=== PATIENT | female | born 1935 | race Caucasian/White ===

== ENCOUNTER 2016-06-11 09:46 | Inpatient (IN) | payer OTHER ==
[~2016-06-11] VITALS: Ht 162.6 cm; Wt 74.0 kg
[2016-06-11] MEDS ORDERED: ALBUTEROL 0.5% (NEB) 2.5 MG/0.5 ML AMP INH STA ×2 (10:20→13:49)
[2016-06-11] MEDS ORDERED: IPRATROPIUM (NEB) 0.5 MG/2.5 ML AMP INH STA (10:20)
[2016-06-11] MEDS ORDERED: IPRATROPIUM (NEB) 0.5 MG/2.5 ML AMP ONE (10:21)
[2016-06-11] MEDS ORDERED: ALBUTEROL 0.5% (NEB) 2.5 MG/0.5 ML AMP ONE (10:21)
--- NOTE | 2016-06-11 10:38 | RADRPT ---
PROCEDURE: XR Chest. CLINICAL INDICATION: Asthma exacerbation. TECHNIQUE: Single frontal view of the chest was obtained COMPARISON: No. FINDINGS: There is thickening of the minor fissure. There is elevation of the right diaphragm. The left vent ricle is upper limits of normal for size. There are increased interstitial markings in the bases of the lungs. There are plate-like densities in the medial aspect of the left lower lobe. The pulmon john vasculature is normal. Vascular calcifications are present the aortic arch. Monitoring electro aniket are direct across the chest. Degenerative osteophytes are present the thoracic spine. IMPRESSION: 1. There are increased interstitial markings in the bases of the lungs. These may be acute or chron ic in nature. Comparison with prior chest x-rays if available or follow-up imaging with AP and late ral chest may be helpful in evaluation. 2. Thickening of the minor fissure could be the result of a trace pleural effusion or pleural scarr ing. 4. Atherosclerosis and aortic arch. 5. Spondylosis of the thoracic spine. 6. Plate-like densities in the medial aspect of the left lower lobe consistent with parenchymal sca rring or atelectasis. RPTAT:AAJJ Physician Yoandy Date Time Electronically viewed and signed by Physician Yoandy on 06/11/2016 10:37 JM/
[2016-06-11 10:39] LABS: BASOPHILS % 0.2 % (0.0-2.0); EOSINOPHILS % 0.1 % (0.0-7.0); HEMATOCRIT 39.1 % (37.0-47.0); HEMOGLOBIN 13.2 g/dl (12.0-16.0); LYMPHOCYTES # 1.1 10^3/ul (0.8-2.9); LYMPHOCYTES % 8.3 % (15.0-51.0); MEAN CORPUSCULAR HEMOGLOBIN 31.6 pg (29.0-33.0); MEAN CORPUSCULAR HGB CONC 33.7 g/dl (32.0-37.0); MEAN CORPUSCULAR VOLUME 93.7 fl (82.0-101.0); MEAN PLATELET VOLUME 8.1 fl (7.4-10.4); MONOCYTE # 0.6 10^3/ul (0.3-0.9); MONOCYTES % 4.1 % (0.0-11.0); NEUTROPHIL # 11.8 10^3/ul (1.6-7.5); NEUTROPHILS % 87.3 % (39.0-77.0); PLATELET COUNT 336 10^3/UL (140-440); RED BLOOD COUNT 4.17 10^6/ul (4.20-5.40); RED CELL DISTRIBUTION WIDTH 13.4 % (11.5-14.5); UNCORRECTED WBC 13.6 10^3/ul (4.8-10.8); WHITE BLOOD COUNT 13.6 10^3/ul (4.8-10.8)
[2016-06-11 10:42] LABS: CONDITION 1
[2016-06-11 10:50] LABS: CHLORIDE 93 mmol/L (97-110); SODIUM 133 mmol/L (135-144)
[2016-06-11 10:53] LABS: ANION GAP 17 (8-16); BLOOD UREA NITROGEN 10 mg/dl (7-20); CALCIUM 8.6 mg/dl (8.4-10.2); CARBON DIOXIDE 27 mmol/L (21-31); GLUCOSE 130 mg/dl (70-220)
[2016-06-11 11:07] LABS: TROPONIN-I < 0.012 ng/ml (0.00-0.12)
[2016-06-11] MEDS ORDERED: LISI20TA11 PO (11:28)
[2016-06-11] MEDS ORDERED: ASPI-664 PO (11:28)
[2016-06-11] MEDS ORDERED: ATOR80TA75 PO (11:29)
[2016-06-11] MEDS ORDERED: DICL75TA2 PO (11:30)
--- NOTE | 2016-06-11 13:16 | ERD ---
ER Documentation Chief Complaint Date/Time DATE: 06/11/16 TIME: 10:10 Chief Complaint COUGH X 3 WEEKS HPI 81-year-old female history of diabetes, hypertension dyslipidemia brought to the ED by family for evaluation of a 2 week history of worsening shortness of breath, nonproductive cough and mild exertional dyspnea. No orthopnea or PND. Denies chest pain or palpitations. No leg pain or swelling. Last night and a subjective fever. No other URI symptoms, rhinorrhea or odynophagia. Denies abdominal pain, nausea, vomiting, diarrhea or constipation. No skin rash. Denies headache or neck pain. No visual changes, focal weakness or numbness. No ill contacts or recent travel. ROS All systems reviewed and are negative except as per history of present illness. Medications Home Meds Active Scripts Azithromycin* (Zithromax*) 250 Mg Tablet, 250 MG PO DAILY, #6 TAB Prov:CLAUDE VELAZQUEZ MD 06/11/16 Albuterol Sulfate* (Proair HFA*) 8.5 Gm Hfa.aer.ad, 2 PUFF INH Q4H Y for WHEEZING AND SOB, #1 INHALER Prov:CLAUDE VELAZQUEZ MD 06/11/16 Reported Medications Diclofenac Sodium* (Diclofenac Sodium*) 75 Mg Tablet.dr, 75 MG PO BID, #60 TAB 06/11/16 Atorvastatin* (Atorvastatin*) 80 Mg Tablet, 80 MG PO QHS, #30 TAB 06/11/16 Aspirin (Low Dose Aspirin) 81 Mg Tablet.dr, 81 MG PO DAILY, #30 TAB 06/11/16 Lisinopril* (Lisinopril*) 20 Mg Tablet, 20 MG PO DAILY, #30 TAB 06/11/16 Allergies Allergies: Coded Allergies: No Known Allergy (Unverified , 06/11/16) PMhx/Soc Reviewed in chart. As per HPI. History of Surgery: Yes (Appendix, Gallbladder) Anesthesia Reaction: No Hx Neurological Disorder: No Hx Respiratory Disorders: No Hx Cardiac Disorders: Yes (HTN, HLD) Hx Psychiatric Problems: No Hx Miscellaneous Medical Probl: Yes (DMII) Hx Alcohol Use: No Hx Substance Use: No Hx Tobacco Use: No Smoking Status: Never smoker FmHx No coronary artery disease, stroke or cancer Physical Exam Vitals Vital Signs Date Time Temp Pulse Resp B/P Pulse Ox O2 Delivery O2 Flow Rate FiO2 2/18/17 13:57 84 20 85 Nasal Cannula 2.0 06/11/16 13:48 98.0 88 16 130/85 89 Room Air 06/11/16 12:30 92 16 139/70 94 Room Air 06/11/16 10:39 Nasal Cannula 2.0 06/11/16 10:34 Nasal Cannula 3 06/11/16 10:30 2.0 06/11/16 10:30 82 24 96 Nasal Cannula 2.0 06/11/16 09:56 98.0 95 22 107/56 88 Physical Exam Const: Alert, elderly, mild respiratory distress. Head: Atraumatic Eyes: Normal Conjunctiva ENT: Normal External Ears, Nose and Mouth. Neck: Full range of motion. No JVD. Resp: Diminished breath sounds bilaterally with expiratory wheezing and scattered rhonchi. No rales. Cardio: Regular rate and rhythm, no murmurs Abd: Soft, non tender, non distended. Normal bowel sounds Skin: No petechiae or rashes Back: No midline or flank tenderness Ext: No cyanosis, or edema no calf swelling or tenderness. Neur: Awake and alert. No focal deficit observed. Psych: Normal Mood and Affect Result Diagram: 06/11/16 1030 06/11/16 1030 Results 24 hrs Laboratory Tests Test 06/11/16 10:22 06/11/16 10:30 Bedside Glucose 124mg/dL Anion Gap 17 B-Type Natriuretic Peptide 158PG/ML Basophils # 0.010^3/ul Basophils % 0.2% Blood Urea Nitrogen 10mg/dl Calcium Level 8.6mg/dl Carbon Dioxide Level 27mmol/L Chloride Level 93mmol/L Creatinine 0.60mg/dl Eosinophils # 0.010^3/ul Eosinophils % 0.1% Glucose Level 130mg/dl Hematocrit 39.1% Hemoglobin 13.2g/dl Lymphocytes # 1.110^3/ul Lymphocytes % 8.3% Mean Corpuscular Hemoglobin 31.6pg Mean Corpuscular Hemoglobin Concent 33.7g/dl Mean Corpuscular Volume 93.7fl Mean Platelet Volume 8.1fl Monocytes # 0.610^3/ul Monocytes % 4.1% Neutrophils # 11.810^3/ul Neutrophils % 87.3% Nucleated Red Blood Cells # 0.010^3/ul Nucleated Red Blood Cells % 0.0/100WBC Platelet Count 32937^3/UL Potassium Level 4.0mmol/L Red Blood Count 4.1710^6/ul Red Cell Distribution Width 13.4% Sodium Level 133mmol/L Troponin I < 0.012ng/ml White Blood Count 13.610^3/ul Current Medications Medications (Trade) Dose Ordered Sig/Torin Route PRN Reason Start Time Stop Time Status Last Admin Dose Admin Albuterol (Proventil 0.5% (Neb)) 15 mg ONCE STAT INH 06/11/16 10:20 06/11/16 10:22 DC 06/11/16 10:29 Ipratropium [place] (Atrovent 0.02% (Neb)) 1 mg ONCE STAT INH 06/11/16 10:20 06/11/16 10:22 DC 06/11/16 10:28 Albuterol (Proventil 0.5% (Neb)) 10 mg ONCE STAT INH 06/11/16 13:49 06/11/16 13:50 DC 06/11/16 13:56 Ondansetron HCl (Zofran Inj) 4 mg BRIDGE ORDER PRN IV NAUSEA AND/OR VOMITING 06/11/16 15:00 06/12/16 14:59 Acetaminophen (Tylenol Tab) 650 mg ER BRIDGE PRN PO MILD PAIN/FEVER 06/11/16 15:00 06/12/16 14:59 IV Flush 10 ml 10 ml STK-MED ONCE .ROUTE 06/11/16 15:30 06/11/16 15:31 DC Sodium Chloride 100 ml @ ud STK-MED ONCE .ROUTE 06/11/16 15:30 06/11/16 15:31 DC Iohexol (Omnipaque) 100 ml @ ud STK-MED ONCE .ROUTE 06/11/16 15:30 06/11/16 15:31 DC Aspirin (Halfprin) 81 mg DAILY PO 06/12/16 09:00 Atorvastatin Calcium (Lipitor) 80 mg QHS PO 06/11/16 21:00 Diclofenac Sodium (Voltaren) 75 mg BID PO 06/11/16 21:00 Lisinopril 20 mg 20 mg DAILY PO 06/12/16 09:00 Azithromycin (Zithromax 500mg/ NS (Pmx)) 250 ml @ 250 mls/hr DAILY IVPB 06/11/16 17:00 06/11/16 17:00 DC Albuterol/ Ipratropium 3 ml 3 ml Q6HWA RESP THERAPY HHN 06/11/16 20:00 Levofloxacin/ Dextrose (Levaquin 500mg/ D5W 100 ml (Pmx)) 100 ml @ 100 mls/hr DAILY IVPB 06/11/16 17:00 EKG: Time: 10:23. Sinus rhythm. Ventricular rate 78, normal MA and QRS intervals. No acute ST segment elevation or depression. No axis deviation or ectopy. EP Impression: Normal EKG IMAGING: PROCEDURE: XR Chest. CLINICAL INDICATION: Asthma exacerbation. TECHNIQUE: Single frontal view of the chest was obtained COMPARISON: No. FINDINGS: There is thickening of the minor fissure. There is elevation of the right diaphragm. The left ventricle is upper limits of normal for size. There are increased interstitial markings in the bases of the lungs. There are plate- like densities in the medial aspect of the left lower lobe. The pulmonary vasculature is normal. Vascular calcifications are present the aortic arch. Monitoring electrodes are direct across the chest. Degenerative osteophytes are present the thoracic spine. IMPRESSION: 1. There are increased interstitial markings in the bases of the lungs. These may be acute or chronic in nature. Comparison with prior chest x-rays if available or follow-up imaging with AP and lateral chest may be helpful in evaluation. 2. Thickening of the minor fissure could be the result of a trace pleural effusion or pleural scarring. 4. Atherosclerosis and aortic arch. 5. Spondylosis of the thoracic spine. 6. Plate-like densities in the medial aspect of the left lower lobe consistent with parenchymal scarring or atelectasis. RPTAT:AAJJ Physician Yoandy Date Time Electronically viewed and signed by Physician Yoandy on 06/11/2016 10:37 JM/ PROCEDURE: CT chest with contrast/PE protocol CLINICAL INDICATION: Chest pain and shortness of breath. Concern for pulmonary embolism TECHNIQUE: The study was performed from the thoracic inlet to the upper abdomen with the use of 100 cc of Omnipaque- 350 intravenous contrast material per PE protocol. Coronal/sagittal reformatted images and coronal MIP images were generated. The images were reviewed on a PACS workstation. CTDIvol = 54.11 mGy and DLP= 459.44 mGycm. COMPARISON: Chest x-ray 06/11/2016 FINDINGS: Lungs, airway and pleura: The trachea and bronchi are patent as well as normal in caliber. O visualized on the chest x-ray is other and interstitial infiltrate involving the superior segment right lower lobe as well as the lateral aspect of the inferior right upper lobe, findings most concerning for pneumonia. In the left lower lobe there is an area of amorphous patchy alveolar density in the lateral basal segment also concerning for pneumonia. Moderate central lobular emphysema is present. There is no obvious suspicious nodule or mass lesion. The pleural spaces are clear, without effusions. Mediastinum, jossue and cardiovascular: The heart is top normal in size. There is no evidence for pericardial effusion. The thoracic aorta is normal in caliber with mild atherosclerotic calcification in the arch. There is no evidence of dissection. There are no filling defects within the pulmonary arteries to suggest emboli. Reactive type mediastinal lymph nodes are seen in the precarinal node measuring approximately 7 mm in short axis. The right- sided hilar lymph node is enlarged measuring 16 mm in short axis. The esophagus is normal in caliber. Osseous structures and musculoskeletal findings: There is preservation of bone architecture and mineralization with no evidence for fracture, lytic or blastic lesion. Mild multilevel thoracic spondylosis is demonstrated No chest wall abnormalities are present. The axillary regions are unremarkable. Visualized upper abdomen: Findings are compatible with prior cholecystectomy. The adrenal glands are normal bilaterally. RPTAT:HJJR IMPRESSION: 1. No evidence of pulmonary embolism. 2. Right upper and lower lobe as well as left lower lobe infiltrates superimposed upon moderate emphysema, findings compatible with multifocal pneumonia with reactive mediastinal and right hilar adenopathy, findings seen to better advantage than on the portable chest x-ray from earlier the same day. 3. Follow-up evaluation after medical therapy is recommended. Physician Maggy Date Time Electronically viewed and signed by Physician Maggy on 06/11/2016 16:21 JR/ Procedures/MDM DOCUMENTS REVIEWED: ED nurse no prior records available. ED COURSE: Nebulized albuterol 15 mg/Atrovent 1 mg. REEXAMINATION/REEVALUATION: Time: 12:00. Doing well. Feels better. REEXAMINATION/REEVALUATION: Time: 13:25. Doing well. No further shortness of breath. O2 saturation 93% REEXAMINATION/REEVALUATION: Time: 13:50. O2 saturations dropped to 88% on room air. Nebulized albuterol 10 mg ordered. REEXAMINATION/REEVALUATION: Time: 15:00. Feels well but room air O2 saturation again drops to the high 80s. MEDICAL DECISION MAKIN-year-old female history of diabetes, hypertension dyslipidemia brought to the ED by family for evaluation of a 2 week history of worsening shortness of breath, nonproductive cough and mild exertional dyspnea. Patient responded to supplemental oxygen and inhaled beta agonist but on room air has ongoing hypoxia. No radiographic evidence of congestive heart failure, pneumonia or pneumothorax. Ongoing hypoxia and a CT reveals multi lobular pneumonia. Patient be admitted to [facility] for further evaluation and management Counseled patient and family regarding diagnostic workup, diagnosis and need for followup. Understands to return to ED if symptoms recur, worsen or any other concerns. OBSERVATION NOTE: At 10:30 the patient was entered into observation status to establish the need for admission. During this time the patient was treated for SOB, bronchospasm and hypoxia. Additionally, extensive evaluation including, CBC , Chemistry, Urinalysis, EKG, CXR and CAT scan of the chest were preformed and results interpreted as above. Vitals signs were monitored and repeat exams were performed every 15-20 minutes. At 15:00 the patient was reexamined. Ongoing hypoxia on RA requiring oxygen to maintain oxygen saturation above 90%. Based on these findings the patient was discharged from observation period as it was determined that the patient met criteria for admission. Departure Diagnosis: Primary Impression: Acute dyspnea Additional Impressions: Pneumonia Pneumonia type: due to unspecified organism Laterality: unspecified laterality Lung location: unspecified part of lung Qualified Code: J18.9 - Pneumonia due to infectious organism, unspecified laterality, unspecified part of lung Bronchospasm, acute Diabetes mellitus type 2 in obese Hypertension Hypertension type: essential hypertension Qualified Code: I10 - Essential hypertension Condition: Serious CLAUDE VELAZQUEZ MD Jun 11, 2016 13:16
[2016-06-11] MEDS ORDERED: AZIT250T94 PO (13:39)
[2016-06-11] MEDS ORDERED: ALBU8.5H3 INH (13:39)
[2016-06-11 13:48] VITALS: TEMP 98
[2016-06-11] MEDS ORDERED: ONDANSETRON 4 MG INJ IV PRN (15:00)
[2016-06-11] MEDS ORDERED: ACETAMINOPHEN 325 MG TAB PO PRN (15:00)
[2016-06-11] MEDS ORDERED: IOHEXOL 100 ML ONE (15:30)
[2016-06-11] MEDS ORDERED: SOD CHLORIDE 0.9% 100 ML ONE (15:30)
--- NOTE | 2016-06-11 16:22 | RADRPT ---
PROCEDURE: CT chest with contrast/PE protocol CLINICAL INDICATION: Chest pain and shortness of breath. Concern for pulmonary embolism TECHNIQUE: The study was performed from the thoracic inlet to the upper abdomen with the use of 10 0 cc of Omnipaque- 350 intravenous contrast material per PE protocol. Coronal/sagittal reformatted i mages and coronal MIP images were generated. The images were reviewed on a PACS workstation. CTDIvo l = 54.11 mGy and DLP= 459.44 mGycm. COMPARISON: Chest x-ray 06/11/2016 FINDINGS: Lungs, airway and pleura: The trachea and bronchi are patent as well as normal in caliber. O visua lized on the chest x-ray is other and interstitial infiltrate involving the superior segment right l ower lobe as well as the lateral aspect of the inferior right upper lobe, findings most concerning f or pneumonia. In the left lower lobe there is an area of amorphous patchy alveolar density in the l ateral basal segment also concerning for pneumonia. Moderate central lobular emphysema is present. There is no obvious suspicious nodule or mass lesion. The pleural spaces are clear, without effusi ons. Mediastinum, jossue and cardiovascular: The heart is top normal in size. There is no evidence for pe ricardial effusion. The thoracic aorta is normal in caliber with mild atherosclerotic calcification in the arch. There is no evidence of dissection. There are no filling defects within the pulmonar y arteries to suggest emboli. Reactive type mediastinal lymph nodes are seen in the precarinal node measuring approximately 7 mm in short axis. The right-sided hilar lymph node is enlarged measuring 16 mm in short axis. The esophagus is normal in caliber. Osseous structures and musculoskeletal findings: There is preservation of bone architecture and min eralization with no evidence for fracture, lytic or blastic lesion. Mild multilevel thoracic spondyl osis is demonstrated No chest wall abnormalities are present. The axillary regions are unremarkable . Visualized upper abdomen: Findings are compatible with prior cholecystectomy. The adrenal glands a re normal bilaterally. RPTAT:HJJR IMPRESSION: 1. No evidence of pulmonary embolism. 2. Right upper and lower lobe as well as left lower lobe infiltrates superimposed upon moderate emp hysema, findings compatible with multifocal pneumonia with reactive mediastinal and right hilar froilan opathy, findings seen to better advantage than on the portable chest x-ray from earlier the same day . 3. Follow-up evaluation after medical therapy is recommended. Estrada Cruz, Physician Date Time Electronically viewed and signed by Estrada Cruz Physician on 06/11/2016 16:21 JR/
--- NOTE | 2016-06-11 16:40 | HP ---
Date/Time of Note Date/Time of Note DATE: 06/11/16 TIME: 16:33 Assessment/Plan VTE Prophylaxis VTE Prophylaxis Intervention: SCD's Assessment/Plan Chief Complaint/Hosp Course Assessment and plan 1. Multifocal pneumonia is seen. Chest radiograph. Will place on antibiotics. Continue on breathing treatments as needed. Titrate off O2 as tolerated 2. Essential hypertension. Continue antihypertensives and adjust as needed 3. Dyslipidemia. Follow-up on fasting lipid panel. Continue on statin medication for now. 4. History of diabetes. No antidiabetic medication seen in patients medical record. Will follow up on A1c. Will place on insulin regimen pending clinical course 5. DVT prophylaxis: SCDs Initial process 40 minutes Discussed plan of care with Dr. Batres Problems: HPI/ROS Admit Date/Time Admit Date/Time Hx of Present Illness This is a 81-year-old female with reported past medical history of diabetes, hypertension, dyslipidemia, previous appendectomy and cholecystectomy who came in via [facility] due to reports of fevers and shortness of breath. According to the patient she had been having moderate cough with associated chest pain for 1 week duration. She did report that she had fevers as high as 101.2. She also reports having sick contacts with a family who does have some type of upper respiratory infection as well as a flu. Patient did report her symptoms progressively got worse and as such can provide respiratory hospital for further evaluation. Upon examination she did have influenza screen which was negative. Additionally chest x-ray did show her to have increased interstitial markings at the base of the lung. There is also seen thickening of the minor fissure with trace pleural effusion or pleural scarring. Patient was found to be hypoxic when she was in the ER. There was suspicion of pulmonary embolism however CTA of the chest was done that showed no evidence of pulmonary embolism. She did have however imaging that did show right upper and lower lobe as well as left lower lobe infiltrate superimposed with moderate emphysema compatible with multifocal pneumonia. Currently she remains on O2. She is tolerating well. She says she still she still reports having moderate cough. We will evaluate her for the aformentioned issues. Transfer to [facility] 12 point review of systems obtained and entirely negative except that mentioned in history of present transfer PMH/Family/Social Past Medical History Medical/surgical history 1. Hypertension 2. Hyperlipidemia 3. Reported diabetes 4. Appendectomy 5. Cholecystectomy Family History Significant Family History: no pertinent family hx Social History Alcohol Use: none Smoking Status: Never smoker Drug Use: none Exam/Review of Systems Vital Signs Vitals Vital Signs Date Time Temp Pulse Resp B/P Pulse Ox O2 Delivery O2 Flow Rate FiO2 06/11/16 13:57 84 20 85 Nasal Cannula 2.0 06/11/16 13:48 98.0 130/85 Exam Exam General: [No acute signs or symptoms of distress] Eyes: [pupils equal round, Anicteric sclera] Neck: Supple nontender, no JVD Cardiac: [S1, S2 auscultated, regular rhythm and rate] Pulmonary: Minimally coarse bilaterally GI: [Abdomen soft nontender nondistended, bowel sounds active] Extremities: [No edema bilateral lower extremities] Skin: [Clean dry and intact] Neurologic: [Alert to person place and time and situation] Labs Result Diagram: 06/11/16 1030 06/11/16 1030 Medications Medications Current Medications Aspirin (Halfprin) 81 mg DAILY PO ; Start 06/12/16 at 09:00 Atorvastatin Calcium (Lipitor) 80 mg QHS PO ; Start 06/11/16 at 21:00; Status UNV Diclofenac Sodium (Voltaren) 75 mg BID PO ; Start 06/11/16 at 21:00; Status UNV Lisinopril 20 mg 20 mg DAILY PO ; Start 06/12/16 at 09:00; Status UNV Azithromycin (Zithromax 500mg/ NS (Pmx)) 250 ml @ 250 mls/hr DAILY IVPB ; Start 06/12/16 at 09:00; Status UNV YVES VIGIL Jun 11, 2016 16:40
[2016-06-11] MEDS ORDERED: AZITHROMYCIN 500MG/NS (PMX) 250 ML IVPB SCH (17:00)
[2016-06-11 17:26] VITALS: BP 130/60; RESP 20
[2016-06-11 17:43] VITALS: Ht 162.6 cm; Wt 74.0 kg
[2016-06-11] MEDS: LEVOFLOXACIN 500MG/D5W (PMX) 100 ML IVPB SCH (18:00)
[2016-06-11] MEDS ORDERED: GLUCOSE GEL 15 GRAM TUBE PO PRN ×2 (18:30)
[2016-06-11] MEDS ORDERED: GLUCOSE GEL 15 GRAM TUBE BUCCAL PRN (18:30)
[2016-06-11] MEDS ORDERED: GLUCAGON 1 MG INJ IM PRN (18:30)
[2016-06-11] MEDS ORDERED: DEXTROSE 50% 50 ML SYRINGE IV PRN ×2 (18:30)
[2016-06-11 20:54] VITALS: BP 138/63; RESP 16
[2016-06-11] MEDS: INSULIN ASPART [NOVOLOG] 3 ML PEN SC SCH (21:00)
[2016-06-11] MEDS: ATORVASTATIN 80 MG TAB PO SCH (21:33)
[2016-06-11] MEDS: DICLOFENAC (EC) 75 MG TAB PO SCH (21:33)
[2016-06-12] MEDS: ALBUTEROL/IPRATROPIUM (NEB) 3 ML AMP HHN SCH ×4 (01:01→20:14)
[2016-06-12] MEDS: INSULIN ASPART [NOVOLOG] 3 ML PEN SC SCH ×4 (07:50→20:28)
[2016-06-12] MEDS: LEVOFLOXACIN 500MG/D5W (PMX) 100 ML IVPB SCH (08:13)
[2016-06-12] MEDS: DICLOFENAC (EC) 75 MG TAB PO SCH ×2 (08:13→20:28)
[2016-06-12] MEDS: ASPIRIN (EC) 81 MG TAB PO SCH (08:13)
[2016-06-12] MEDS: LISINOPRIL 20 MG TAB PO SCH (08:15)
[2016-06-12 08:27] VITALS: BP 109/55; RESP 20
[2016-06-12 09:04] LABS: ADD UMIC YES; URINE BILIRUBIN (Dip) NEGATIVE (NEGATIVE); URINE BLOOD (Dip) NEGATIVE (NEGATIVE); URINE COLOR YELLOW (YELLOW); URINE GLUCOSE (Dip) NEGATIVE (NEGATIVE); URINE KETONES (Dip) NEGATIVE (NEGATIVE); URINE LEUKOCYTE ESTERASE (Dip) NEGATIVE (NEGATIVE); URINE NITRITE (Dip) NEGATIVE (NEGATIVE); URINE TOTAL PROTEIN (Dip) TRACE (NEGATIVE); URINE UROBILINOGEN (Dip) 2.0 E.U./dL (0.1-1.0)
[2016-06-12 09:12] LABS: MUCUS,URINE MANY
[2016-06-12 10:27] LABS: BASOPHILS % 0.3 % (0.0-2.0); EOSINOPHILS % 0.1 % (0.0-7.0); HEMATOCRIT 34.7 % (37.0-47.0); HEMOGLOBIN 11.6 g/dl (12.0-16.0); LYMPHOCYTES # 1.9 10^3/ul (0.8-2.9); MEAN CORPUSCULAR HGB CONC 33.5 g/dl (32.0-37.0); MEAN CORPUSCULAR VOLUME 92.5 fl (82.0-101.0); MEAN PLATELET VOLUME 7.7 fl (7.4-10.4); MONOCYTE # 1.2 10^3/ul (0.3-0.9); MONOCYTES % 8.5 % (0.0-11.0); NEUTROPHIL # 10.7 10^3/ul (1.6-7.5); NEUTROPHILS % 77.1 % (39.0-77.0); PLATELET COUNT 316 10^3/UL (140-440); RED BLOOD COUNT 3.75 10^6/ul (4.20-5.40); RED CELL DISTRIBUTION WIDTH 13.6 % (11.5-14.5); UNCORRECTED WBC 13.9 10^3/ul (4.8-10.8); WHITE BLOOD COUNT 13.9 10^3/ul (4.8-10.8)
[2016-06-12 10:33] LABS: CONDITION 1; POTASSIUM 3.6 mmol/L (3.5-5.1)
[2016-06-12 10:35] LABS: CREATININE 0.6 mg/dl (0.44-1.00)
[2016-06-12 10:37] LABS: CALCIUM 8.4 mg/dl (8.4-10.2)
--- NOTE | 2016-06-12 15:17 | PN ---
Date/Time of Note Date/Time of Note DATE: 06/12/16 TIME: 15:14 Assessment/Plan VTE Prophylaxis VTE Prophylaxis Intervention: SCD's Lines/Catheters IV [facility]ter Type (from [facility]): Saline Lock Urinary Cath still in place: No Assessment/Plan Chief Complaint/Hosp Course Assessment and plan 1. Multifocal pneumonia as seen on Chest radiograph. Will place on antibiotics. Continue on breathing treatments as needed. Titrate off O2 as tolerated 2. Essential hypertension. Continue antihypertensives and adjust as needed 3. Dyslipidemia. Continue on statin medication for now. 4. History of diabetes. No antidiabetic medication seen in patients medical record. Will follow up on A1c. Will place on insulin regimen pending clinical course 5. DVT prophylaxis: SCDs Disposition and plan: Await for improvement of breathing. Afebrile at present. Titrate off O2. Discharge when medically stable Discussed plan of care with Dr. Batres Problems: Subjective 24 Hr Interval Summary Free Text/Dictation Reports little better breathing at this time. Exam/Review of Systems Vital Signs Vitals Vital Signs Date Time Temp Pulse Resp B/P Pulse Ox O2 Delivery O2 Flow Rate FiO2 06/12/16 11:05 Nasal Cannula 3.0 06/12/16 09:15 72 20 93 06/12/16 08:27 98.0 109/55 Intake and Output 06/11/16 06/11/16 06/12/16 14:59 22:59 06:59 Intake Total 100 ml 200 ml Balance 100 ml 200 ml Exam General: No acute signs or symptoms of distress Eyes: pupils equal round, Anicteric sclera Neck: Supple nontender, no JVD Cardiac: S1, S2 auscultated, regular rhythm and rate Pulmonary: Minimally coarse bilaterally GI: Abdomen soft nontender nondistended, bowel sounds active Extremities: No edema bilateral lower extremities Skin: Clean dry and intact Neurologic: Alert to person place and time and situation Results Result Diagram: 06/12/16 1015 06/12/16 1015 Results 24 hrs Laboratory Tests Test 06/11/16 21:37 06/12/16 07:50 06/12/16 08:00 06/12/16 10:15 Bedside Glucose 146 122 Urine Bilirubin NEGATIVE Urine Clarity CLEAR Urine Color YELLOW Urine Epithelial Cells FEW Urine Glucose NEGATIVE Urine Hemoglobin NEGATIVE Urine Ketones NEGATIVE Urine Leukocyte Esterase NEGATIVE Urine Microscopic RBC 2-5 Urine Microscopic WBC 5-10 Urine Mucus MANY Urine Nitrite NEGATIVE Urine Specific [place] 1.020 Urine Total Protein TRACE Urine Urobilinogen 2.0 E.U./dL H Urine pH 6.0 Anion Gap 15 Basophils # 0.0 Basophils % 0.3 Blood Urea Nitrogen 14 Calcium Level 8.4 Carbon Dioxide Level 28 Chloride Level 94 L Creatinine 0.60 Eosinophils # 0.0 Eosinophils % 0.1 Glucose Level 150 Hematocrit 34.7 L Hemoglobin 11.6 L Lymphocytes # 1.9 Lymphocytes % 14.0 L Mean Corpuscular Hemoglobin 31.0 Mean Corpuscular Hemoglobin Concent 33.5 Mean Corpuscular Volume 92.5 Mean Platelet Volume 7.7 Monocytes # 1.2 H Monocytes % 8.5 Neutrophils # 10.7 H Neutrophils % 77.1 H Nucleated Red Blood Cells # 0.0 Nucleated Red Blood Cells % 0.0 Platelet Count 316 Potassium Level 3.6 Red Blood Count 3.75 L Red Cell Distribution Width 13.6 Sodium Level 133 L White Blood Count 13.9 H Test 06/12/16 11:38 Bedside Glucose 132 Medications Medications Current Medications Aspirin (Halfprin) 81 mg DAILY PO Last administered on 06/12/16 08:13; Admin Dose 81 MG; Start 06/12/16 at 09:00 Atorvastatin Calcium (Lipitor) 80 mg QHS PO Last administered on 06/11/16 21: 33; Admin Dose 80 MG; Start 06/11/16 at 21:00 Diclofenac Sodium (Voltaren) 75 mg BID PO Last administered on 06/12/16 08:13 ; Admin Dose 75 MG; Start 06/11/16 at 21:00 Lisinopril 20 mg 20 mg DAILY PO ; Start 06/12/16 at 09:00 Levofloxacin/ Dextrose (Levaquin 500mg/ D5W 100 ml (Pmx)) 100 ml @ 100 mls/hr DAILY IVPB Last administered on 06/12/16 08:13; Admin Dose 100 MLS/HR; Start 06/11/16 at 17:00 Miscellaneous Information 1 ea NOTE XX ; Start 06/11/16 at 18:30 Glucose (Glutose) 15 gm Q15M PRN PO DECREASED GLUCOSE; Start 06/11/16 at 18:30 Glucose (Glutose) 22.5 gm Q15M PRN PO DECREASED GLUCOSE; Start 06/11/16 at 18: 30 Dextrose (D50w Syringe) 25 ml Q15M PRN IV DECREASED GLUCOSE; Start 06/11/16 at 18:30 Dextrose (D50w Syringe) 50 ml Q15M PRN IV DECREASED GLUCOSE; Start 06/11/16 at 18:30 Glucagon (Glucagen) 1 mg Q15M PRN IM DECREASED GLUCOSE; Start 06/11/16 at 18:30 Glucose (Glutose) 15 gm Q15M PRN BUCCAL DECREASED GLUCOSE; Start 06/11/16 at 18 :30 YVES VIGIL Jun 12, 2016 15:16
[2016-06-12 20:23] VITALS: BP 133/64; RESP 18
[2016-06-12] MEDS: ATORVASTATIN 80 MG TAB PO SCH (20:28)
[2016-06-13 06:10] LABS: POTASSIUM 4.1 mmol/L (3.5-5.1)
[2016-06-13 06:12] LABS: CREATININE 0.67 mg/dl (0.44-1.00)
[2016-06-13 06:13] LABS: CALCIUM 8.7 mg/dl (8.4-10.2)
[2016-06-13 06:46] LABS: BASOPHILS % 0.3 % (0.0-2.0); EOSINOPHILS % 0.2 % (0.0-7.0); HEMATOCRIT 34.6 % (37.0-47.0); HEMOGLOBIN 11.7 g/dl (12.0-16.0); LYMPHOCYTES # 2.1 10^3/ul (0.8-2.9); LYMPHOCYTES % 15.7 % (15.0-51.0); MEAN CORPUSCULAR HEMOGLOBIN 31.7 pg (29.0-33.0); MEAN CORPUSCULAR HGB CONC 33.8 g/dl (32.0-37.0); MEAN CORPUSCULAR VOLUME 93.6 fl (82.0-101.0); MEAN PLATELET VOLUME 8.3 fl (7.4-10.4); MONOCYTE # 1.2 10^3/ul (0.3-0.9); MONOCYTES % 9.1 % (0.0-11.0); NEUTROPHIL # 9.9 10^3/ul (1.6-7.5); NEUTROPHILS % 74.7 % (39.0-77.0); PLATELET COUNT 341 10^3/UL (140-440); RED BLOOD COUNT 3.69 10^6/ul (4.20-5.40); RED CELL DISTRIBUTION WIDTH 13.8 % (11.5-14.5); UNCORRECTED WBC 13.2 10^3/ul (4.8-10.8); WHITE BLOOD COUNT 13.2 10^3/ul (4.8-10.8)
[2016-06-13 06:51] LABS: CONDITION 1
[2016-06-13 07:26] VITALS: BP 141/63; RESP 18
[2016-06-13] MEDS: INSULIN ASPART [NOVOLOG] 3 ML PEN SC SCH ×4 (08:01→21:00)
[2016-06-13] MEDS ORDERED: ALBU8.5H3 INH (08:58)
[2016-06-13] MEDS ORDERED: LEVO500T10 PO (08:58)
[2016-06-13] MEDS ORDERED: GUAI-637 PO (08:58)
[2016-06-13] MEDS ORDERED: ADV25050 INHALATION (08:58)
[2016-06-13] MEDS: ALBUTEROL/IPRATROPIUM (NEB) 3 ML AMP HHN SCH ×3 (09:00→19:56)
[2016-06-13] MEDS: DICLOFENAC (EC) 75 MG TAB PO SCH ×2 (09:20→21:39)
[2016-06-13] MEDS: LEVOFLOXACIN 500MG/D5W (PMX) 100 ML IVPB SCH (09:20)
[2016-06-13] MEDS: ASPIRIN (EC) 81 MG TAB PO SCH (09:20)
[2016-06-13] MEDS: LISINOPRIL 20 MG TAB PO SCH (09:22)
--- NOTE | 2016-06-13 09:50 | RADRPT ---
PROCEDURE: XR Chest. CLINICAL INDICATION: Pneumonia TECHNIQUE: A single AP view of the chest was obtained. COMPARISON: Chest x-ray and CT pulmonary angiogram dated 06/11/2016 FINDINGS: There is coarsening of the interstitial markings with patchy bilateral interstitial opacities. No p leural effusion or pneumothorax is seen. The cardiomediastinal silhouette is within normal limits f or size. The osseous structures demonstrate senescent changes. IMPRESSION: 1. Chronic-appearing interstitial changes with patchy bilateral interstitial opacities may reflect superimposed interstitial edema or pneumonia. There are increased opacities in the right upper lobe when compared to the prior examination. 2. Aortic atherosclerosis. RPTAT: HH .Yue Agarwal MD, MD Date Time Electronically viewed and signed by .Yue Agarwal MD, on 06/13/2016 09:49 .G/
[2016-06-13] MEDS: SALMETEROL/FLUTICASONE 250/50 INHA INH SCH ×2 (10:33→21:39)
[2016-06-13] MEDS: GUAIFENESIN LA 600 MG TABSR PO SCH ×2 (10:33→21:39)
--- NOTE | 2016-06-13 15:24 | PN ---
Date/Time of Note Date/Time of Note DATE: 06/13/16 TIME: 15:17 Assessment/Plan VTE Prophylaxis VTE Prophylaxis Intervention: SCD's Lines/Catheters [facility] Saline Lock Urinary Cath still in place: No Assessment/Plan Chief Complaint/Hosp Course Assessment and plan 1. Multifocal pneumonia as seen on Chest radiograph. Will place on antibiotics. Continue on breathing treatments as needed. noted to be hypoxic on room air. Start on advair. STill with some bronchospasm. Will add steroid 2. Essential hypertension. Continue antihypertensives and adjust as needed 3. Dyslipidemia. Continue on statin medication for now. 4. History of diabetes. No antidiabetic medication seen in patients medical record. Will follow up on A1c. Will place on insulin regimen pending clinical course 5. DVT prophylaxis: SCDs Disposition and plan: Await for improvement of breathing. started on advair and prednisone Discussed plan of care with Dr. Mcmahon Problems: Subjective 24 Hr Interval Summary Free Text/Dictation still seen on o2 3lnc. noted with productive cough Exam/Review of Systems Vital Signs Vitals Vital Signs Date Time Temp Pulse Resp B/P Pulse Ox O2 Delivery O2 Flow Rate FiO2 06/13/16 14:52 69 20 98 Nasal Cannula 3.0 32 06/13/16 07:26 98.5 141/63 Intake and Output 06/12/16 06/12/16 06/13/16 15:00 23:00 07:00 Intake Total 580 ml 200 ml Balance 580 ml 200 ml Exam General: No acute signs or symptoms of distress Eyes: pupils equal round, Anicteric sclera Neck: Supple nontender, no JVD Cardiac: S1, S2 auscultated, regular rhythm and rate Pulmonary: wheezing auscultated lower lung bases GI: Abdomen soft nontender nondistended, bowel sounds active Extremities: No edema bilateral lower extremities Skin: Clean dry and intact Neurologic: Alert to person place and time and situation Results Result Diagram: 06/13/16 0450 06/13/16 0450 Results 24 hrs Laboratory Tests Test 06/12/16 17:20 06/12/16 20:27 06/13/16 04:50 06/13/16 07:51 Bedside Glucose 122 123 96 Anion Gap 15 Basophils # 0.0 Basophils % 0.3 Blood Urea Nitrogen 16 Calcium Level 8.7 Carbon Dioxide Level 30 Chloride Level 95 L Creatinine 0.67 Eosinophils # 0.0 Eosinophils % 0.2 Glucose Level 106 # Hematocrit 34.6 L Hemoglobin 11.7 L Lymphocytes # 2.1 Lymphocytes % 15.7 Mean Corpuscular Hemoglobin 31.7 Mean Corpuscular Hemoglobin Concent 33.8 Mean Corpuscular Volume 93.6 Mean Platelet Volume 8.3 Monocytes # 1.2 H Monocytes % 9.1 Neutrophils # 9.9 H Neutrophils % 74.7 Nucleated Red Blood Cells # 0.0 Nucleated Red Blood Cells % 0.0 Platelet Count 341 Potassium Level 4.1 Red Blood Count 3.69 L Red Cell Distribution Width 13.8 Sodium Level 136 White Blood Count 13.2 H Test 06/13/16 11:51 Bedside Glucose 99 Medications Medications Current Medications Aspirin (Halfprin) 81 mg DAILY PO Last administered on 06/13/16 09:20; Admin Dose 81 MG; Start 06/12/16 at 09:00 Atorvastatin Calcium (Lipitor) 80 mg QHS PO Last administered on 06/12/16 20: 28; Admin Dose 80 MG; Start 06/11/16 at 21:00 Diclofenac Sodium (Voltaren) 75 mg BID PO Last administered on 06/13/16 09:20 ; Admin Dose 75 MG; Start 06/11/16 at 21:00 Lisinopril 20 mg 20 mg DAILY PO Last administered on 06/13/16 09:22; Admin Dose 20 MG; Start 06/12/16 at 09:00 Levofloxacin/ Dextrose (Levaquin 500mg/ D5W 100 ml (Pmx)) 100 ml @ 100 mls/hr DAILY IVPB Last administered on 06/13/16 09:20; Admin Dose 100 MLS/HR; Start 06/11/16 at 17:00 Miscellaneous Information 1 ea NOTE XX ; Start 06/11/16 at 18:30 Glucose (Glutose) 15 gm Q15M PRN PO DECREASED GLUCOSE; Start 06/11/16 at 18:30 Glucose (Glutose) 22.5 gm Q15M PRN PO DECREASED GLUCOSE; Start 06/11/16 at 18: 30 Dextrose (D50w Syringe) 25 ml Q15M PRN IV DECREASED GLUCOSE; Start 06/11/16 at 18:30 Dextrose (D50w Syringe) 50 ml Q15M PRN IV DECREASED GLUCOSE; Start 06/11/16 at 18:30 Glucagon (Glucagen) 1 mg Q15M PRN IM DECREASED GLUCOSE; Start 06/11/16 at 18:30 Glucose (Glutose) 15 gm Q15M PRN BUCCAL DECREASED GLUCOSE; Start 06/11/16 at 18 :30 Salmeterol Xinafoate/ Fluticasone (Advair 250/50 Diskus) 1 inh BID INH Last administered on 06/13/16 10:33; Admin Dose 1 INH; Start 06/13/16 at 09:00 Guaifenesin (Mucinex) 600 mg BID PO Last administered on 06/13/16 10:33; Admin Dose 600 MG; Start 06/13/16 at 10:30 YVES VIGIL Jun 13, 2016 15:24
[2016-06-13] MEDS: predniSONE 20 MG TAB PO SCH (16:33)
[2016-06-13 19:00] VITALS: BP 131/60; RESP 18
[2016-06-13] MEDS: ATORVASTATIN 80 MG TAB PO SCH (21:39)
[2016-06-14 06:06] LABS: HEMATOCRIT 33.9 % (37.0-47.0); HEMOGLOBIN 11.6 g/dl (12.0-16.0); LYMPHOCYTES % 8.2 % (15.0-51.0); MEAN CORPUSCULAR HEMOGLOBIN 31.6 pg (29.0-33.0); MEAN CORPUSCULAR HGB CONC 34.1 g/dl (32.0-37.0); MEAN CORPUSCULAR VOLUME 92.7 fl (82.0-101.0); MEAN PLATELET VOLUME 8.1 fl (7.4-10.4); MONOCYTE # 0.5 10^3/ul (0.3-0.9); NEUTROPHIL # 10.3 10^3/ul (1.6-7.5); NEUTROPHILS % 87.8 % (39.0-77.0); PLATELET COUNT 394 10^3/UL (140-440); RED BLOOD COUNT 3.66 10^6/ul (4.20-5.40); RED CELL DISTRIBUTION WIDTH 13.9 % (11.5-14.5); UNCORRECTED WBC 11.8 10^3/ul (4.8-10.8); WHITE BLOOD COUNT 11.8 10^3/ul (4.8-10.8)
[2016-06-14 06:17] LABS: CREATININE 0.62 mg/dl (0.44-1.00)
[2016-06-14 06:18] LABS: CALCIUM 9.4 mg/dl (8.4-10.2)
[2016-06-14 06:19] LABS: CONDITION 1
[2016-06-14] MEDS: INSULIN ASPART [NOVOLOG] 3 ML PEN SC SCH ×4 (08:15→21:43)
[2016-06-14 08:42] VITALS: BP 129/72; RESP 18
[2016-06-14] MEDS: ASPIRIN (EC) 81 MG TAB PO SCH (08:48)
[2016-06-14] MEDS: GUAIFENESIN LA 600 MG TABSR PO SCH ×2 (08:48→21:36)
[2016-06-14] MEDS: LEVOFLOXACIN 500MG/D5W (PMX) 100 ML IVPB SCH (08:48)
[2016-06-14] MEDS: DICLOFENAC (EC) 75 MG TAB PO SCH ×2 (08:48→21:36)
[2016-06-14] MEDS: predniSONE 20 MG TAB PO SCH (08:48)
[2016-06-14] MEDS: LISINOPRIL 20 MG TAB PO SCH (08:49)
[2016-06-14] MEDS: SALMETEROL/FLUTICASONE 250/50 INHA INH SCH ×2 (08:54→21:37)
[2016-06-14] MEDS: ALBUTEROL/IPRATROPIUM (NEB) 3 ML AMP HHN SCH ×3 (09:10→20:32)
--- NOTE | 2016-06-14 10:06 | PN ---
Date/Time of Note Date/Time of Note DATE: 06/14/16 TIME: 10:05 Assessment/Plan VTE Prophylaxis VTE Prophylaxis Intervention: SCD's Lines/Catheters [facility] Type [facility] Saline Lock Urinary Cath still in place: No Assessment/Plan Assessment/Plan 1. Multifocal pneumonia as seen on Chest radiograph. Will place on antibiotics. Continue on breathing treatments as needed. noted to be hypoxic on room air. Start on advair. STill with some bronchospasm. Will add steroid 2. Essential hypertension. Continue antihypertensives and adjust as needed 3. Dyslipidemia. Continue on statin medication for now. 4. History of diabetes. No antidiabetic medication seen in patients medical record. Will follow up on A1c. Will place on insulin regimen pending clinical course 5. DVT prophylaxis: SCDs Disposition and plan: Await for improvement of breathing. started on advair and prednisone Subjective 24 Hr Interval Summary Free Text/Dictation still hypoxic on RA, no Cough, no SOB, no wheezing Exam/Review of Systems Vital Signs Vitals Vital Signs Date Time Temp Pulse Resp B/P Pulse Ox O2 Delivery O2 Flow Rate FiO2 06/14/16 08:42 98.2 78 18 129/72 92 06/14/16 01:04 3.0 06/13/16 20:00 Nasal Cannula 06/13/16 14:52 32 Intake and Output 06/13/16 06/13/16 06/14/16 15:00 23:00 07:00 Intake Total 100 ml 480 ml Balance 100 ml 480 ml Exam General: No acute signs or symptoms of distress Eyes: pupils equal round, Anicteric sclera Neck: Supple nontender, no JVD Cardiac: S1, S2 auscultated, regular rhythm and rate Pulmonary: wheezing auscultated lower lung bases GI: Abdomen soft nontender nondistended, bowel sounds active Extremities: No edema bilateral lower extremities Skin: Clean dry and intact Neurologic: Alert to person place and time and situation Results Result Diagram: 06/14/16 0538 06/14/16 0538 Results 24 hrs Laboratory Tests Test 06/13/16 11:51 06/13/16 17:27 06/13/16 21:38 06/14/16 05:38 Bedside Glucose 99 119 165 Anion Gap 15 Basophils # 0.0 Basophils % 0.0 Blood Urea Nitrogen 17 Calcium Level 9.4 Carbon Dioxide Level 29 Chloride Level 99 Creatinine 0.62 Eosinophils # 0.0 Eosinophils % 0.0 Glucose Level 148 # Hematocrit 33.9 L Hemoglobin 11.6 L Lymphocytes # 1.0 Lymphocytes % 8.2 L Mean Corpuscular Hemoglobin 31.6 Mean Corpuscular Hemoglobin Concent 34.1 Mean Corpuscular Volume 92.7 Mean Platelet Volume 8.1 Monocytes # 0.5 Monocytes % 4.0 Neutrophils # 10.3 H Neutrophils % 87.8 H Nucleated Red Blood Cells # 0.0 Nucleated Red Blood Cells % 0.0 Platelet Count 394 Potassium Level 5.0 Red Blood Count 3.66 L Red Cell Distribution Width 13.9 Sodium Level 138 White Blood Count 11.8 H Test 06/14/16 07:54 Bedside Glucose 132 Medications Medications Current Medications Aspirin (Halfprin) 81 mg DAILY PO Last administered on 06/14/16 08:48; Admin Dose 81 MG; Start 06/12/16 at 09:00 Atorvastatin Calcium (Lipitor) 80 mg QHS PO Last administered on 06/13/16 21: 39; Admin Dose 80 MG; Start 06/11/16 at 21:00 Diclofenac Sodium (Voltaren) 75 mg BID PO Last administered on 06/14/16 08:48 ; Admin Dose 75 MG; Start 06/11/16 at 21:00 Lisinopril 20 mg 20 mg DAILY PO Last administered on 06/14/16 08:49; Admin Dose 20 MG; Start 06/12/16 at 09:00 Levofloxacin/ Dextrose (Levaquin 500mg/ D5W 100 ml (Pmx)) 100 ml @ 100 mls/hr DAILY IVPB Last administered on 06/14/16 08:48; Admin Dose 100 MLS/HR; Start 06/11/16 at 17:00 Miscellaneous Information 1 ea NOTE XX ; Start 06/11/16 at 18:30 Glucose (Glutose) 15 gm Q15M PRN PO DECREASED GLUCOSE; Start 06/11/16 at 18:30 Glucose (Glutose) 22.5 gm Q15M PRN PO DECREASED GLUCOSE; Start 06/11/16 at 18: 30 Dextrose (D50w Syringe) 25 ml Q15M PRN IV DECREASED GLUCOSE; Start 06/11/16 at 18:30 Dextrose (D50w Syringe) 50 ml Q15M PRN IV DECREASED GLUCOSE; Start 06/11/16 at 18:30 Glucagon (Glucagen) 1 mg Q15M PRN IM DECREASED GLUCOSE; Start 06/11/16 at 18:30 Glucose (Glutose) 15 gm Q15M PRN BUCCAL DECREASED GLUCOSE; Start 06/11/16 at 18 :30 Salmeterol Xinafoate/ Fluticasone (Advair 250/50 Diskus) 1 inh BID INH Last administered on 06/14/16 08:54; Admin Dose 1 INH; Start 06/13/16 at 09:00 Guaifenesin (Mucinex) 600 mg BID PO Last administered on 06/14/16 08:48; Admin Dose 600 MG; Start 06/13/16 at 10:30 Prednisone (Prednisone) 40 mg DAILY PO Last administered on 06/14/16 08:48; Admin Dose 40 MG; Start 06/13/16 at 15:30 PAPITO RAMOS MD Jun 14, 2016 10:06
[2016-06-14 10:30] VITALS: RESP 20
[2016-06-14 11:18] LABS: Allen Test ACCEPTAB; Arterial Base Excess 3.5 mmol/L (-3.0-3); Arterial COHb 0.3 % (0.0-3.0); Arterial HCO3 28.6 mmol/L (22.0-26.0); Arterial MetHb 0.3 % (0.0-1.5); MODE ROOM AIR
[2016-06-14 21:07] VITALS: BP 141/63; RESP 20
[2016-06-14] MEDS: ATORVASTATIN 80 MG TAB PO SCH (21:36)
[2016-06-15 07:13] LABS: CALCIUM 9.1 mg/dl (8.4-10.2); CREATININE 0.62 mg/dl (0.44-1.00)
[2016-06-15] MEDS: ALBUTEROL/IPRATROPIUM (NEB) 3 ML AMP HHN SCH ×3 (07:28→20:37)
[2016-06-15] MEDS: INSULIN ASPART [NOVOLOG] 3 ML PEN SC SCH ×4 (07:55→20:30)
[2016-06-15] MEDS: SALMETEROL/FLUTICASONE 250/50 INHA INH SCH ×2 (08:21→21:16)
[2016-06-15] MEDS: LEVOFLOXACIN 500MG/D5W (PMX) 100 ML IVPB SCH (08:21)
[2016-06-15] MEDS: DICLOFENAC (EC) 75 MG TAB PO SCH ×2 (08:22→21:16)
[2016-06-15] MEDS: predniSONE 20 MG TAB PO SCH (08:22)
[2016-06-15] MEDS: ASPIRIN (EC) 81 MG TAB PO SCH (08:23)
[2016-06-15] MEDS: GUAIFENESIN LA 600 MG TABSR PO SCH ×2 (08:23→21:16)
[2016-06-15] MEDS: LISINOPRIL 20 MG TAB PO SCH (08:25)
[2016-06-15 08:54] VITALS: BP 140/61; RESP 20
[2016-06-15 09:38] LABS: BASOPHILS % 0.2 % (0.0-2.0); HEMATOCRIT 32.4 % (37.0-47.0); LYMPHOCYTES # 1.9 10^3/ul (0.8-2.9); LYMPHOCYTES % 15.5 % (15.0-51.0); MEAN CORPUSCULAR HEMOGLOBIN 31.8 pg (29.0-33.0); MEAN CORPUSCULAR VOLUME 93.7 fl (82.0-101.0); MEAN PLATELET VOLUME 8.5 fl (7.4-10.4); MONOCYTE # 0.8 10^3/ul (0.3-0.9); MONOCYTES % 6.7 % (0.0-11.0); NEUTROPHIL # 9.7 10^3/ul (1.6-7.5); NEUTROPHILS % 77.6 % (39.0-77.0); PLATELET COUNT 406 10^3/UL (140-440); RED BLOOD COUNT 3.46 10^6/ul (4.20-5.40); RED CELL DISTRIBUTION WIDTH 13.6 % (11.5-14.5); UNCORRECTED WBC 12.4 10^3/ul (4.8-10.8); WHITE BLOOD COUNT 12.4 10^3/ul (4.8-10.8)
[2016-06-15 09:40] LABS: CONDITION 1
--- NOTE | 2016-06-15 10:10 | PN ---
Date/Time of Note Date/Time of Note DATE: 06/15/16 TIME: 10:10 Assessment/Plan VTE Prophylaxis VTE Prophylaxis Intervention: SCD's Lines/Catheters IV Catheter Type (from Nrs): Saline Lock Urinary Cath still in place: No Assessment/Plan Assessment/Plan 1. Multifocal pneumonia - on IV levaquin 2. Essential hypertension. Continue antihypertensives and adjust as needed 3. Dyslipidemia. Continue on statin medication for now. 4. History of diabetes. No antidiabetic medication seen in patients medical record. Will follow up on A1c. Will place on insulin regimen pending clinical course 5. DVT prophylaxis: SCDs Disposition and plan: Await for improvement of breathing. started on advair and prednisone, pt still hypoxic off oxygen Subjective 24 Hr Interval Summary Free Text/Dictation pt did not qualify for home oxygen, still desturating off xoygen to 87% with tachypenea Exam/Review of Systems Vital Signs Vitals Vital Signs Date Time Temp Pulse Resp B/P Pulse Ox O2 Delivery O2 Flow Rate FiO2 06/15/16 08:54 98.5 78 20 140/61 98 06/15/16 07:28 21 06/15/16 02:38 2.0 06/14/16 10:30 Room Air Intake and Output 06/14/16 06/14/16 06/15/16 14:59 22:59 06:59 Intake Total 100 ml 1200 ml Balance 100 ml 1200 ml Exam General: No acute signs or symptoms of distress Eyes: pupils equal round, Anicteric sclera Neck: Supple nontender, no JVD Cardiac: S1, S2 auscultated, regular rhythm and rate Pulmonary: wheezing auscultated lower lung bases GI: Abdomen soft nontender nondistended, bowel sounds active Extremities: No edema bilateral lower extremities Skin: Clean dry and intact Neurologic: Alert to person place and time and situation Results Result Diagram: 06/15/16 0545 06/15/16 0545 Results 24 hrs Laboratory Tests Test 06/14/16 10:40 06/14/16 12:16 06/14/16 17:28 06/14/16 21:36 Arterial Blood HCO3 28.6 H Arterial Blood Base Excess 3.5 H Arterial Blood Oxygen Saturation 90.5 L Tarik Test ACCEPTAB Arterial Blood Gas Puncture Site Right Radial Arterial Blood Carboxyhemoglobin 0.3 Arterial Blood Date Drawn 06/14/2016 11:08:54 AM Arterial Blood Methemoglobin 0.3 Arterial Blood pCO2 (Temp correct) 45.1 H Arterial Blood pH (Temp corrected) 7.420 Arterial Blood pO2 (Temp corrected) 58.7 L Blood Gas A-a O2 Differential 37.0 H Blood Gas Modality ROOM AIR Blood Gas Notified Time 06/14/2016 11:18:32 AM Blood Gas Notified Whom JLD Blood Gas Specimen Source Blood arterial Blood Gas Temperature 37.0 FiO2 21.0 Oxyhemoglobin Percent 90.0 L Total Hemoglobin 14.0 Bedside Glucose 155 180 185 Test 06/15/16 05:45 06/15/16 07:44 Anion Gap 14 Basophils # 0.0 Basophils % 0.2 Blood Urea Nitrogen 19 Calcium Level 9.1 Carbon Dioxide Level 30 Chloride Level 99 Creatinine 0.62 Eosinophils # 0.0 Eosinophils % 0.0 Glucose Level 107 # Hematocrit 32.4 L Hemoglobin 11.0 L Lymphocytes # 1.9 Lymphocytes % 15.5 Mean Corpuscular Hemoglobin 31.8 Mean Corpuscular Hemoglobin Concent 34.0 Mean Corpuscular Volume 93.7 Mean Platelet Volume 8.5 Monocytes # 0.8 Monocytes % 6.7 Neutrophils # 9.7 H Neutrophils % 77.6 H Nucleated Red Blood Cells # 0.0 Nucleated Red Blood Cells % 0.0 Platelet Count 406 Potassium Level 4.0 Red Blood Count 3.46 L Red Cell Distribution Width 13.6 Sodium Level 139 White Blood Count 12.4 H Bedside Glucose 97 Medications Medications Current Medications Aspirin (Halfprin) 81 mg DAILY PO Last administered on 06/15/16 08:23; Admin Dose 81 MG; Start 06/12/16 at 09:00 Atorvastatin Calcium (Lipitor) 80 mg QHS PO Last administered on 06/14/16 21: 36; Admin Dose 80 MG; Start 06/11/16 at 21:00 Diclofenac Sodium (Voltaren) 75 mg BID PO Last administered on 06/15/16 08:22 ; Admin Dose 75 MG; Start 06/11/16 at 21:00 Lisinopril 20 mg 20 mg DAILY PO Last administered on 06/15/16 08:25; Admin Dose 20 MG; Start 06/12/16 at 09:00 Levofloxacin/ Dextrose (Levaquin 500mg/ D5W 100 ml (Pmx)) 100 ml @ 100 mls/hr DAILY IVPB Last administered on 06/15/16 08:21; Admin Dose 100 MLS/HR; Start 06/11/16 at 17:00 Miscellaneous Information 1 ea NOTE XX ; Start 06/11/16 at 18:30 Glucose (Glutose) 15 gm Q15M PRN PO DECREASED GLUCOSE; Start 06/11/16 at 18:30 Glucose (Glutose) 22.5 gm Q15M PRN PO DECREASED GLUCOSE; Start 06/11/16 at 18: 30 Dextrose (D50w Syringe) 25 ml Q15M PRN IV DECREASED GLUCOSE; Start 06/11/16 at 18:30 Dextrose (D50w Syringe) 50 ml Q15M PRN IV DECREASED GLUCOSE; Start 06/11/16 at 18:30 Glucagon (Glucagen) 1 mg Q15M PRN IM DECREASED GLUCOSE; Start 06/11/16 at 18:30 Glucose (Glutose) 15 gm Q15M PRN BUCCAL DECREASED GLUCOSE; Start 06/11/16 at 18 :30 Salmeterol Xinafoate/ Fluticasone (Advair 250/50 Diskus) 1 inh BID INH Last administered on 06/15/16 08:21; Admin Dose 1 INH; Start 06/13/16 at 09:00 Guaifenesin (Mucinex) 600 mg BID PO Last administered on 06/15/16 08:23; Admin Dose 600 MG; Start 06/13/16 at 10:30 Prednisone (Prednisone) 40 mg DAILY PO Last administered on 06/15/16 08:22; Admin Dose 40 MG; Start 06/13/16 at 15:30 PAPITO RAMOS MD Jun 15, 2016 10:10
[2016-06-15 20:27] VITALS: BP 133/60; PULSE 66; RESP 18
[2016-06-15] MEDS: ATORVASTATIN 80 MG TAB PO SCH (21:16)
[2016-06-16 07:45] VITALS: BP 137/60; RESP 22
[2016-06-16] MEDS: INSULIN ASPART [NOVOLOG] 3 ML PEN SC SCH ×2 (08:04→12:15)
[2016-06-16] MEDS: LEVOFLOXACIN 500MG/D5W (PMX) 100 ML IVPB SCH (08:22)
[2016-06-16] MEDS: LISINOPRIL 20 MG TAB PO SCH (08:22)
[2016-06-16] MEDS: GUAIFENESIN LA 600 MG TABSR PO SCH (08:22)
[2016-06-16] MEDS: predniSONE 20 MG TAB PO SCH (08:22)
[2016-06-16] MEDS: DICLOFENAC (EC) 75 MG TAB PO SCH (08:22)
[2016-06-16] MEDS: ASPIRIN (EC) 81 MG TAB PO SCH (08:24)
[2016-06-16] MEDS: SALMETEROL/FLUTICASONE 250/50 INHA INH SCH (08:24)
[2016-06-16] MEDS: ALBUTEROL/IPRATROPIUM (NEB) 3 ML AMP HHN SCH ×2 (08:34→14:05)
--- NOTE | 2016-06-16 09:16 | PN ---
Date/Time of Note Date/Time of Note DATE: 06/16/16 TIME: 09:15 Assessment/Plan VTE Prophylaxis VTE Prophylaxis Intervention: SCD's Lines/Catheters IV Catheter Type (from Nrs): Saline Lock Urinary Cath still in place: No Assessment/Plan Assessment/Plan 1. Multifocal pneumonia - on IV levaquin 2. Essential hypertension. Continue antihypertensives and adjust as needed 3. Dyslipidemia. Continue on statin medication for now. 4. History of diabetes. No antidiabetic medication seen in patients medical record. Will follow up on A1c. Will place on insulin regimen pending clinical course 5. DVT prophylaxis: SCDs Disposition and plan: Await for improvement of breathing. started on advair and prednisone, pt still hypoxic off oxygen Subjective 24 Hr Interval Summary Free Text/Dictation stable, off oxygen but still c/o SOB, chest pain Exam/Review of Systems Vital Signs Vitals Vital Signs Date Time Temp Pulse Resp B/P Pulse Ox O2 Delivery O2 Flow Rate FiO2 06/16/16 08:38 72 18 95 Nasal Cannula 2.0 06/16/16 07:45 98.4 137/60 06/15/16 07:28 21 Intake and Output 06/15/16 06/15/16 06/16/16 15:00 23:00 07:00 Intake Total 1420 ml Balance 1420 ml Exam General: No acute signs or symptoms of distress Eyes: pupils equal round, Anicteric sclera Neck: Supple nontender, no JVD Cardiac: S1, S2 auscultated, regular rhythm and rate Pulmonary: wheezing auscultated lower lung bases GI: Abdomen soft nontender nondistended, bowel sounds active Extremities: No edema bilateral lower extremities Skin: Clean dry and intact Neurologic: Alert to person place and time and situation Results Result Diagram: 06/15/16 0545 06/15/16 0545 Results 24 hrs Laboratory Tests Test 06/15/16 12:01 06/15/16 16:54 06/15/16 20:29 06/16/16 07:46 Bedside Glucose 136 149 140 91 Medications Medications Current Medications Aspirin (Halfprin) 81 mg DAILY PO Last administered on 06/16/16 08:24; Admin Dose 81 MG; Start 06/12/16 at 09:00 Atorvastatin Calcium (Lipitor) 80 mg QHS PO Last administered on 06/15/16 21: 16; Admin Dose 80 MG; Start 06/11/16 at 21:00 Diclofenac Sodium (Voltaren) 75 mg BID PO Last administered on 06/16/16 08:22 ; Admin Dose 75 MG; Start 06/11/16 at 21:00 Lisinopril 20 mg 20 mg DAILY PO Last administered on 06/16/16 08:22; Admin Dose 20 MG; Start 06/12/16 at 09:00 Levofloxacin/ Dextrose (Levaquin 500mg/ D5W 100 ml (Pmx)) 100 ml @ 100 mls/hr DAILY IVPB Last administered on 06/16/16 08:22; Admin Dose 100 MLS/HR; Start 06/11/16 at 17:00 Miscellaneous Information 1 ea NOTE XX ; Start 06/11/16 at 18:30 Glucose (Glutose) 15 gm Q15M PRN PO DECREASED GLUCOSE; Start 06/11/16 at 18:30 Glucose (Glutose) 22.5 gm Q15M PRN PO DECREASED GLUCOSE; Start 06/11/16 at 18: 30 Dextrose (D50w Syringe) 25 ml Q15M PRN IV DECREASED GLUCOSE; Start 06/11/16 at 18:30 Dextrose (D50w Syringe) 50 ml Q15M PRN IV DECREASED GLUCOSE; Start 06/11/16 at 18:30 Glucagon (Glucagen) 1 mg Q15M PRN IM DECREASED GLUCOSE; Start 06/11/16 at 18:30 Glucose (Glutose) 15 gm Q15M PRN BUCCAL DECREASED GLUCOSE; Start 06/11/16 at 18 :30 Salmeterol Xinafoate/ Fluticasone (Advair 250/50 Diskus) 1 inh BID INH Last administered on 06/16/16 08:24; Admin Dose 1 INH; Start 06/13/16 at 09:00 Guaifenesin (Mucinex) 600 mg BID PO Last administered on 06/16/16 08:22; Admin Dose 600 MG; Start 06/13/16 at 10:30 Prednisone (Prednisone) 40 mg DAILY PO Last administered on 06/16/16 08:22; Admin Dose 40 MG; Start 06/13/16 at 15:30 PAPITO RAMOS MD Jun 16, 2016 09:16
--- NOTE | 2016-06-16 09:18 | PDOCDIS ---
Discharge Instructions CONDITION Patient Condition: Good HOME CARE INSTRUCTIONS: Special Diet: Carb Control ACTIVITY: Activity Restrictions: Slowly Increase Activity Rest between Activity Avoid heavy lifting Avoid Heavy Housework FOLLOW UP/APPOINTMENTS Appointments follow up with Dr.kalpesh irizarry in 2-3 week for her CKD, follow up with Her own PMD through HMO insurance in 1-2 week PAPITO IRIZARRY MD Jun 16, 2016 09:18
--- NOTE | 2016-06-18 06:19 | DS ---
DATE OF ADMISSION: 06/11/2016 DATE OF DISCHARGE: 06/16/2016 FINAL DISCHARGE DIAGNOSES: 1. Multifocal pneumonia. 2. Acute hypoxic respiratory distress secondary to multifocal pneumonia. 3. Essential hypertension. 4. Dyslipidemia. 5. History of diabetes mellitus. CONSULTATIONS DONE DURING THIS HOSPITALIZATION: None. PROCEDURES PERFORMED DURING THIS HOSPITALIZATION: None. HOSPITAL COURSE: This is a 81-year-old female with a past medical history of hypertension, dyslipid emia, and diabetes mellitus who presented with a complaint of shortness of breath. The patient was noted to have multifocal pneumonia, causing acute hypoxic respiratory distress. She was treated wit h IV Levaquin. She was also given Advair and prednisone for possible inflammatory lung disease. Sh e remained hemodynamically stable. She was desaturating off oxygen, so she stayed in the hospital f or more IV antibiotics and lung therapy. After getting a stable saturation she is getting discharge d home with a prescriptions for Levaquin. DISPOSITION: To home. DISCHARGE CONDITION: Stable, improved compared to admission. DISCHARGE ACTIVITIES: As tolerated. Slowly resume to the normal baseline activity. DISCHARGE DIET: Low fat, ADA 1800 kilocalorie diet. DISCHARGE MEDICATIONS: As per medical reconciliation. DISCHARGE FOLLOWUP AND INSTRUCTIONS: 1. The patient is to follow up with her own primary care doctor through her HMO insurance 1 to 2 we eks after discharge. 2. The patient was also advised to follow up with Dr. Papito Ramos in the outpatient clinic 1 to 2 weeks after discharge. She understood and verbalized understanding. Dictated By: PAPITO RAMOS MD, KP/VIGNESH Conf#: [id number] DID#: [id number]
== END 2016-06-16 16:20 | disposition home or self-care (01) | DRG 195 ==
LOC: E/R 09:46 → MS2 15:04
PROVIDERS: ADMIT Internal Medicine; ATTEND Internal Medicine
DX: J18.8 Other pneumonia, unspecified organism (principal); R06.00 Dyspnea, unspecified; R09.02 Hypoxemia; I10 Essential (primary) hypertension; E78.5 Hyperlipidemia, unspecified; E11.9 Type 2 diabetes mellitus without complications; Z79.4 Long term (current) use of insulin
CPT/HCPCS: 36600; 71010; 71275; 80048; 81001; 81003; 82803; 82962; 83036; 83880; 84484; 85025; 87070; 87400; 93005; 94640; 94644; 94645; 94664; J1815; J1956; J7512; Q9967

== ENCOUNTER 2017-02-08 10:19 | Inpatient (IN) | payer OTHER ==
[~2017-02-08] VITALS: Ht 160 cm; Wt 64.0 kg
[~2017-02-08 10:19] MED LIST: ADV25050 INHALATION; ALBU8.5H3 INH; ASPI-664 PO; ATOR80TA75 PO; DICL75TA2 PO; GUAI-637 PO; LEVO500T10 PO; LISI20TA11 PO
[2017-02-08] MEDS ORDERED: ALBUTEROL 0.083% (NEB) 2.5 MG/3 ML AMP HHN STA (10:50)
--- NOTE | 2017-02-08 10:53 | ERD ---
ER Documentation Chief Complaint Date/Time DATE: 02/08/17 TIME: 10:51 Chief Complaint cough and back pain, sent by pmd for cxr r/o pneumonia HPI Patient is a 81-year-old female who presents with cough productive of whitish sputum for the last 4 days. She states that she also has had gradual onset, intermittent right upper back pain that is worse with coughing. She denies chest pain. She reports mild shortness of breath. She denies hemoptysis. She denies vomiting or fever. She went to see her PMD today and was sent to the ER to get a chest x-ray to exclude pneumonia. ROS All systems reviewed and are negative except as per history of present illness. Medications Home Meds Active Scripts Salmeterol Xinaf/Fluticasone* (Advair*) 250-50 Diskus Inhaler, 1 INH INHALATION BID, #1 INHALER Prov:YVES VIGIL 06/13/16 Albuterol Sulfate* (Proair HFA*) 8.5 Gm Hfa.aer.ad, 2 PUFF INH Q4H Y for WHEEZING AND SOB, #1 INHALER Prov:YVES VIGIL 06/13/16 Reported Medications Diclofenac Sodium* (Diclofenac Sodium*) 75 Mg Tablet.dr, 75 MG PO BID, #60 TAB 06/11/16 Atorvastatin* (Atorvastatin*) 80 Mg Tablet, 80 MG PO QHS, #30 TAB 06/11/16 Aspirin (Low Dose Aspirin) 81 Mg Tablet.dr, 81 MG PO DAILY, #30 TAB 06/11/16 Lisinopril* (Lisinopril*) 20 Mg Tablet, 20 MG PO DAILY, #30 TAB 06/11/16 Discontinued Scripts Guaifenesin* (Robitussin*) 100 Mg/5 Ml Syrup, 200 MG PO QID, #8 OZ Prov:YVES VIGIL 06/13/16 Levofloxacin* (Levofloxacin*) 500 Mg Tablet, 500 MG PO DAILY for 10 Days, TAB Prov:YVES VIGIL 06/13/16 Allergies Allergies: Coded Allergies: No Known Allergy (Unverified , 06/11/16) PMhx/Soc Past medical history: Diabetes mellitus, hypertension, hyperlipidemia Past surgical history: Denies Social history: Denies alcohol or tobacco currently or formerly History of Surgery: Yes (Appendix, Gallbladder) Anesthesia Reaction: No Hx Neurological Disorder: No Hx Respiratory Disorders: Yes Hx Cardiac Disorders: Yes (HTN) Hx Psychiatric Problems: No Hx Miscellaneous Medical Probl: No Hx Alcohol Use: No Hx Substance Use: No Hx Tobacco Use: No FmHx Noncontributory Physical Exam Vitals Vital Signs Date Time Temp Pulse Resp B/P Pulse Ox O2 Delivery O2 Flow Rate FiO2 02/08/17 13:00 75 16 110/63 96 Nasal Cannula 2.0 02/08/17 11:29 60 18 89 21 02/08/17 10:29 98.3 76 16 126/56 93 Physical Exam Const: Alert, no acute distress Head: Atraumatic Eyes: Normal Conjunctiva, No pallor, no icterus ENT: Normal External Ears, Nose and Mouth. Mucous membranes tacky Neck: Full range of motion. No meningismus. No JVD Resp: Clear to auscultation bilaterally, No wheezes, no rales, no prolonged expiration Cardio: Regular rate and rhythm, no murmurs Abd: Soft, non tender, non distended. Skin: No petechiae or rashes Back: No midline or flank tenderness Ext: No cyanosis, or edema Neur: Awake and alert, Cranial nerves II through XII intact bilaterally, strength and sensation full in 4 extremities. Psych: Normal Mood and Affect Result Diagram: 02/08/17 1111 02/08/17 1111 Results 24 hrs Laboratory Tests Test 02/08/17 11:11 02/08/17 11:16 02/08/17 12:17 White Blood Count 9.510^3/ul Red Blood Count 4.4510^6/ul Hemoglobin 13.6g/dl Hematocrit 41.4% Mean Corpuscular Volume 93.0fl Mean Corpuscular Hemoglobin 30.6pg Mean Corpuscular Hemoglobin Concent 32.9g/dl Red Cell Distribution Width 14.6% Platelet Count 06375^3/UL Mean Platelet Volume 10.0fl Neutrophils % 65.0% Lymphocytes % 24.8% Monocytes % 9.1% Eosinophils % 0.4% Basophils % 0.3% Nucleated Red Blood Cells % 0.0/100WBC Neutrophils # 6.210^3/ul Lymphocytes # 2.410^3/ul Monocytes # 0.910^3/ul Eosinophils # 0.010^3/ul Basophils # 0.010^3/ul Nucleated Red Blood Cells # 0.010^3/ul Sodium Level 138mmol/L Potassium Level 3.7mmol/L Chloride Level 99mmol/L Carbon Dioxide Level 29mmol/L Anion Gap 14 Blood Urea Nitrogen 17mg/dl Creatinine 0.76mg/dl Glucose Level 98mg/dl Lactic Acid Level 1.5mmol/L Calcium Level 9.2mg/dl B-Type Natriuretic Peptide 40PG/ML Bedside Glucose 106mg/dL Blood Gas Specimen Source Blood arterial Arterial Blood Date Drawn 02/08/2017 12:38:19 PM Arterial Blood pH (Temp corrected) 7.349 Arterial Blood pCO2 (Temp correct) 51.3mmhg Arterial Blood pO2 (Temp corrected) 56.2mmHG Arterial Blood HCO3 27.6mmol/L Arterial Blood Base Excess 1.1mmol/L Arterial Blood Oxygen Saturation 88.2mmHG Tarik Test ACCEPTAB Arterial Blood Gas Puncture Site Right Radial Arterial Blood Carboxyhemoglobin 0.3% Arterial Blood Methemoglobin 0.3% Blood Gas A-a O2 Differential 32.1mmHg Oxyhemoglobin Percent 87.7% Total Hemoglobin 14.2g/dl Blood Gas Temperature 37.0C Blood Gas Modality ROOM AIR FiO2 21.0% Blood Gas Critical Value Read Back DR. MAYBERRY Blood Gas Notified Whom [place] Blood Gas Notified Time 02/08/2017 12:45:55 PM Current Medications Medications (Trade) Dose Ordered Sig/Torin Route PRN Reason Start Time Stop Time Status Last Admin Dose Admin Albuterol 5 mg 5 mg ONCE STAT HHN 02/08/17 10:50 02/08/17 10:52 DC 02/08/17 11:28 Sodium Chloride 500 ml @ 500 mls/hr Q1H ONCE IV 02/08/17 11:00 02/08/17 11:59 DC 02/08/17 11:32 Azithromycin/ Sodium Chloride (Zithromax/NS) 250 ml @ 250 mls/hr ONCE IVPB 02/08/17 13:00 02/08/17 13:59 DC 02/08/17 13:11 IV Flush 10 ml 10 ml STK-MED ONCE .ROUTE 02/08/17 13:27 02/08/17 13:28 DC Sodium Chloride (NS) 100 ml @ ud STK-MED ONCE .ROUTE 02/08/17 13:27 02/08/17 13:28 DC Iodixanol (Visipaque Locm) 100 ml STK-MED ONCE .ROUTE 02/08/17 13:27 02/08/17 13:28 DC Ondansetron HCl (Zofran Inj) 4 mg BRIDGE ORDER PRN IV NAUSEA AND/OR VOMITING 02/08/17 14:30 02/09/17 14:29 Acetaminophen (Tylenol Tab) 650 mg ER BRIDGE PRN PO MILD PAIN/FEVER 02/08/17 14:30 02/09/17 14:29 Prednisone (Prednisone) 50 mg DAILY PO 02/08/17 14:30 Procedures/MDM EKG read by me: Time 1117, rate 66 Rhythm: Normal sinus [place]: Normal Intervals: Normal ST-T waves: no ischemic changes Ectopy: No Q-waves: No Impression: No evidence of ischemia or arrhythmia Arterial blood gas: PH 7.349, consistent with mild acidosis PCO2 51.3, consistent with mild respiratory acidosis Bicarbonate 27.6, within normal limits O2 saturation 88%, consistent with hypoxemia PO2 56.2, consistent with hypoxemia Interpretation: Hypoxemia with mild respiratory acidosis MDM: Patient is a 81-year-old female who presents with 4 days of cough productive of whitish sputum and associate with shortness of breath. She was admitted several months ago for pneumonia, but has no leukocytosis, fever, or infiltrate on x-ray. She does report right-sided back pain. She has no identifiable risk factors for pulmonary embolism, but on ABG was found to have hypoxemia on room air. This persisted after receiving albuterol nebulizer treatment. CTPA was negative for pulmonary embolism, but was suggestive of emphysema. The patient has no prior history of emphysema and is not a smoker. She was given a dose of azithromycin and steroids. She did not have a respiratory distress or signs of sepsis. She will be admitted for further pulmonary workup. Departure Diagnosis: Primary Impression: Hypoxemia Additional Impressions: Cough Emphysema of lung Emphysema type: unspecified Qualified Code: J43.9 - Pulmonary emphysema, unspecified emphysema type Condition: TAWANA Oh MD Feb 08, 2017 10:53
[2017-02-08] MEDS ORDERED: SOD CHLORIDE 0.9% 500 ML IV ONE (11:00)
[2017-02-08 11:34] LABS: BASOPHILS % 0.3 % (0.0-2.0); EOSINOPHILS % 0.4 % (0.0-7.0); HEMATOCRIT 41.4 % (37.0-47.0); HEMOGLOBIN 13.6 g/dl (12.0-16.0); LYMPHOCYTES # 2.4 10^3/ul (0.8-2.9); LYMPHOCYTES % 24.8 % (15.0-51.0); MEAN CORPUSCULAR HEMOGLOBIN 30.6 pg (29.0-33.0); MEAN CORPUSCULAR HGB CONC 32.9 g/dl (32.0-37.0); MONOCYTE # 0.9 10^3/ul (0.3-0.9); MONOCYTES % 9.1 % (0.0-11.0); NEUTROPHIL # 6.2 10^3/ul (1.6-7.5); PLATELET COUNT 279 10^3/UL (140-415); RED BLOOD COUNT 4.45 10^6/ul (4.20-5.40); RED CELL DISTRIBUTION WIDTH 14.6 % (11.5-14.5); WHITE BLOOD COUNT 9.5 10^3/ul (4.8-10.8)
--- NOTE | 2017-02-08 11:50 | RADRPT ---
PROCEDURE: Chest x-ray CLINICAL INDICATION: Shortness of breath TECHNIQUE: Chest single view COMPARISON: 06/13/2016 FINDINGS: The heart is normal in size. The pulmonary vessels are normal in caliber. There is interval clearin g of previously noted bilateral pneumonia. No new infiltrates are seen. The costophrenic angles are sharp. The visualized bony thorax is unremarkable. There is moderate degenerative change right acr omioclavicular joint IMPRESSION: No acute cardiopulmonary disease. Interval clearing of bilateral pneumonia RPTAT: HH .Dwayne Shoemaker MD, MD Date Time Electronically viewed and signed by .Dwayne Shoemaker MD, on 02/08/2017 11:49 .W/
[2017-02-08 12:03] LABS: CALCIUM 9.2 mg/dl (8.4-10.2); CREATININE 0.76 mg/dl (0.44-1.00); POTASSIUM 3.7 mmol/L (3.5-5.1)
[2017-02-08 12:46] LABS: AADO2 Arterial 32.1 mmHg (7.0-24.0); Allen Test ACCEPTAB; Arterial Base Excess 1.1 mmol/L (-3.0-3); Arterial COHb 0.3 % (0.0-3.0); Arterial Fraction of Oxyhgb 87.7 % (93.0-99.0); Arterial HCO3 27.6 mmol/L (22.0-26.0); Arterial MetHb 0.3 % (0.0-1.5); Arterial Total Hemglobin 14.2 g/dl (12.0-18.0); MODE ROOM AIR
[2017-02-08] MEDS ORDERED: AZITHROMYCIN 500 MG in SOD CHLORIDE 0.9% 250 ML IVPB SCH (13:00)
[2017-02-08] MEDS ORDERED: IODIXANOL LOCM 100 ML BTL ONE (13:27)
[2017-02-08] MEDS ORDERED: SOD CHLORIDE 0.9% 100 ML ONE (13:27)
--- NOTE | 2017-02-08 14:12 | RADRPT ---
PROCEDURE: CT Chest Angiogram with contrast. CLINICAL INDICATION: Shortness of breath TECHNIQUE: CT scan of the chest with contrast was performed on a multidetector high-resolution CT scanner. The patient was scanned following the uncomplicated intravenous administration of 100 cc o f Isovue 300 contrast. Coronal and sagittal reformatted images were obtained from the axial source images. Additional 3D volumetric renderings were created. Images were reviewed on a [employer] PACS workstation. The total exam CTDI equals 14/15 mGy and the total exam DLP equals 543 mGy-cm. O ne or more of the following dose reduction techniques were used: Automated exposure control, Adjustm ent of the mA and/or kV according to patient size, and/or use of iterative reconstruction technique. COMPARISON: Chest CT 06/11/2016 FINDINGS: Technically adequate exam for the evaluation of the pulmonary arteries to the segmental level. No in traluminal filling defects are seen. Biapical pleural parenchymal scarring. Scattered emphysematous changes with lung scarring. Left uppe r lobe 2 mm subpleural nodule, unchanged. Resolution of prior patchy bilateral consolidations. No ev idence of new consolidation. Redemonstrated right hilar lymphadenopathy. Mild scattered mediastinal lymph nodes again seen. Aortic atherosclerosis. Direct origin of the left vertebral artery from the aorta, an anatomic variant. No pleural or pericardial effusion. Status post cholecystectomy. Colonic diverticulosis. Degenerative changes to the thoracic spine are seen. IMPRESSION: No evidence of pulmonary embolus. Redemonstrated right hilar lymphadenopathy. Resolution of prior patchy bilateral consolidations since 06/11/2016. No evidence of new consolidation or pleural effusion. Emphysema. RPTAT: AA .Casey Guillen MD, Date Time Electronically viewed and signed by .Casey Guillen MD, MD on 02/08/2017 14:12 .T/
[2017-02-08] MEDS ORDERED: ACETAMINOPHEN 325 MG TAB PO PRN (14:30)
[2017-02-08] MEDS ORDERED: ONDANSETRON 4 MG INJ IV PRN (14:30)
[2017-02-08] MEDS ORDERED: ALBUTEROL/IPRATROPIUM (NEB) 3 ML AMP HHN STA (14:58)
[2017-02-08 15:00] VITALS: TEMP 98.7
[2017-02-08] MEDS ORDERED: NACL 0.9% 3 ML SYG IV SCH (15:00)
--- NOTE | 2017-02-08 15:06 | HP ---
Date/Time of Note Date/Time of Note DATE: 02/08/17 TIME: 14:57 Assessment/Plan VTE Prophylaxis VTE Prophylaxis Intervention: LMWH Assessment/Plan Chief Complaint/Hosp Course 81 yo female with HLD, HTN, heavy lifetime smoke exposure from wood burning stove presenting with SOB. Found to have wheezing on exam, mild hypoxia and hypercapnea with CT showing emphysema Likely this patient has emphysema as a result of wood stove smoke exposure and this is an acute COPD exacerbation - Will treat with systemic steroids, bronchodilators, and azithromycin course - O2 to 88-92% by NC. Respiratory status is very stable at this point - Will need outpatient PFTs, will consult pulmonary to coordinate outpatient care HLD: - Continue statin and aspirin Hypertension: - Continue SARAH HSQ Problems: HPI/ROS Admit Date/Time Admit Date/Time Hx of Present Illness 81 yo female without significant PMH but with heavy second hand smoke inhalation history after lifetime of exposure to wood stove presenting with SOB. Patient has had mild SOB symptoms over past months to year. Did have an admission for pneumonia last year. Over past few days has become much more short of breath with cough and wheezing, subjective fever. No other associated symptoms. Here in ED, found to be mildly hypoxic and mild hypercapnea. CT negative for PE but shows radiographic evidence of emphysema. Received bronchilators, feels well now, still on 2L by NC saturatin 95%. PMH/Family/Social Past Medical History Medical History: no pertinent history Past Surgical History Past Surgical Hx: no surgical history Family History Significant Family History: no pertinent family hx Social History Alcohol Use: none Smoking Status: Never smoker Drug Use: none Exam/Review of Systems Vital Signs Vitals Vital Signs Date Time Temp Pulse Resp B/P Pulse Ox O2 Delivery O2 Flow Rate FiO2 02/08/17 13:00 75 16 110/63 96 Nasal Cannula 2.0 02/08/17 11:29 21 02/08/17 10:29 98.3 Exam Exam Elderly female resting comfortably in NAD, AOx3 Pleasant, approrpiate, speaking in full sentences RRR, no m/r/g Lungs are with quite distant sounds b/l, scattered wheezing. Pattern is nonlabored and stable No peripheral edema, no JVD Abdomen soft nt nd Labs Result Diagram: 02/08/17 1111 02/08/17 1111 Medications Medications Current Medications Prednisone (Prednisone) 50 mg DAILY PO ; Start 02/08/17 at 14:30 TAWANA DUDLEY MD Feb 08, 2017 15:06
[2017-02-08] MEDS: predniSONE 50 MG TAB PO SCH (15:19)
[2017-02-08] MEDS ORDERED: METHYLPREDNISOLONE 125 MG INJ IV ONE (15:30)
[2017-02-08] MEDS: ALBUTEROL/IPRATROPIUM (NEB) 3 ML AMP HHN SCH ×2 (18:26→20:42)
[2017-02-08 20:30] VITALS: Ht 160 cm; Wt 64.0 kg
[2017-02-08] MEDS ORDERED: ACCU-CHEK XX SCH (21:00)
[2017-02-08 21:08] VITALS: BP 141/63; RESP 18
[2017-02-08] MEDS ORDERED: GLUCOSE GEL 15 GRAM TUBE PO PRN ×2 (22:30)
[2017-02-08] MEDS ORDERED: GLUCOSE GEL 15 GRAM TUBE BUCCAL PRN (22:30)
[2017-02-08] MEDS ORDERED: GLUCAGON 1 MG INJ IM PRN (22:30)
[2017-02-08] MEDS ORDERED: DEXTROSE 50% 50 ML SYRINGE IV PRN ×2 (22:30)
[2017-02-08] MEDS: INSULIN ASPART [NOVOLOG] 3 ML PEN SC SCH (23:06)
[2017-02-09] MEDS: ALBUTEROL/IPRATROPIUM (NEB) 3 ML AMP HHN SCH ×6 (01:15→20:13)
[2017-02-09 01:47] VITALS: BP 138/72; RESP 18
[2017-02-09] MEDS: ACCU-CHEK XX SCH (02:12)
[2017-02-09 05:18] LABS: BASOPHILS % 0.1 % (0.0-2.0); HEMATOCRIT 39.6 % (37.0-47.0); HEMOGLOBIN 12.9 g/dl (12.0-16.0); LYMPHOCYTES # 0.9 10^3/ul (0.8-2.9); LYMPHOCYTES % 11.1 % (15.0-51.0); MEAN CORPUSCULAR HEMOGLOBIN 30.4 pg (29.0-33.0); MEAN CORPUSCULAR HGB CONC 32.6 g/dl (32.0-37.0); MEAN CORPUSCULAR VOLUME 93.2 fl (82.0-101.0); MEAN PLATELET VOLUME 10.2 fl (7.4-10.4); MONOCYTE # 0.2 10^3/ul (0.3-0.9); MONOCYTES % 2.3 % (0.0-11.0); NEUTROPHIL # 7.1 10^3/ul (1.6-7.5); NEUTROPHILS % 85.9 % (39.0-77.0); PLATELET COUNT 292 10^3/UL (140-415); RED BLOOD COUNT 4.25 10^6/ul (4.20-5.40); WHITE BLOOD COUNT 8.3 10^3/ul (4.8-10.8)
[2017-02-09 06:23] LABS: ALBUMIN 3.9 g/dl (3.3-4.9); ALBUMIN/GLOBULIN RATIO 1.14; BILIRUBIN,INDIRECT 0.3 mg/dl (0-1.1); BILIRUBIN,TOTAL 0.3 mg/dl (0.2-1.3); CALCIUM 9.4 mg/dl (8.4-10.2); CREATININE 0.67 mg/dl (0.44-1.00); POTASSIUM 3.7 mmol/L (3.5-5.1); TOTAL PROTEIN 7.3 g/dl (6.1-8.1)
[2017-02-09 06:40] LABS: THYROID STIMULATING HORMONE 0.108 MIU/L (0.465-4.680)
[2017-02-09] MEDS ORDERED: INSULIN ASPART [NOVOLOG] 3 ML PEN SC SCH (07:50)
[2017-02-09 08:01] VITALS: BP 141/65; RESP 18
[2017-02-09] MEDS: INSULIN ASPART [NOVOLOG] 3 ML PEN SC SCH ×4 (08:06→21:00)
[2017-02-09] MEDS: AZITHROMYCIN 250 MG TAB PO SCH (08:10)
[2017-02-09] MEDS: predniSONE 50 MG TAB PO SCH (08:10)
[2017-02-09] MEDS: ENOXAPARIN 30 MG/0.3 ML SYG SC SCH (08:12)
[2017-02-09] MEDS ORDERED: INFLUENZA VIRUS VACCINE 0.5 ML (DISPENSING) IM* ONE (09:00)
[2017-02-09] MEDS ORDERED: VANCOMYCIN IV PER PHARMACY XX SCH (11:30)
--- NOTE | 2017-02-09 12:53 | CONS ---
Date/Time of Note Date/Time of Note DATE: 02/09/17 TIME: 12:49 Assessment/Plan Assessment/Plan Chief Complaint/Hosp Course Assessment 1. Resolving pneumonia 2. Mild apical emphysema Plan 1. Agree with steroid taper 2. Bronchodilators 3. Discharge soon. Problems: Consultation Date/Type/Reason Admit Date/Time Date of Consultation: Feb 09, 2017 Reason for Consultation Shortness of breath Hx of Present Illness 81-year-old lady with several day history of increasing shortness of breath and chest congestion. No hemoptysis or hematemesis. Prior history of smoke exposure and mild emphysematous changes on chest CT. No evidence of pulmonary embolism. Denies any fever chills no weight loss no recent travel history. As above. Past Medical History As above. Medical History: no pertinent history Past Surgical History Past Surgical Hx: no surgical history Social History Non-smoker no alcohol no history of drug use. Alcohol Use: none Smoking Status: Never smoker Drug Use: none Exam/Review of Systems Vital Signs Vitals Vital Signs Date Time Temp Pulse Resp B/P Pulse Ox O2 Delivery O2 Flow Rate FiO2 02/09/17 12:15 86 20 96 Nasal Cannula 3.0 02/09/17 08:01 98.5 141/65 02/08/17 11:29 21 Intake and Output 02/08/17 02/08/17 02/09/17 15:00 23:00 07:00 Intake Total 300 ml Balance 300 ml Exam GENERAL: Elderly lady comfortable at rest VITAL SIGNS: per chart NECK: Supple. No JVD or lymphadenopathy. CARDIAC EXAM: S1, S2. No added sounds or murmurs. CHEST: clear bilaterally, No added sounds, rales or wheezes ABDOMEN: Soft, nontender. No guarding or rebound. EXTREMITIES: No cyanosis, clubbing or edema. NEUROLOGIC: Generalized weakness. No focal deficits. Results Result Diagram: 02/09/17 0448 02/09/17 0448 Results 24 hrs Laboratory Tests Test 02/08/17 21:23 02/08/17 22:28 02/09/17 02:03 02/09/17 04:48 Bedside Glucose 206 267 H 214 White Blood Count 8.3 Red Blood Count 4.25 Hemoglobin 12.9 Hematocrit 39.6 Mean Corpuscular Volume 93.2 Mean Corpuscular Hemoglobin 30.4 Mean Corpuscular Hemoglobin Concent 32.6 Red Cell Distribution Width 15.0 H Platelet Count 292 Mean Platelet Volume 10.2 Neutrophils % 85.9 H Lymphocytes % 11.1 L Monocytes % 2.3 Eosinophils % 0.0 Basophils % 0.1 Nucleated Red Blood Cells % 0.0 Neutrophils # 7.1 Lymphocytes # 0.9 Monocytes # 0.2 L Eosinophils # 0.0 Basophils # 0.0 Nucleated Red Blood Cells # 0.0 Sodium Level 144 Potassium Level 3.7 Chloride Level 105 Carbon Dioxide Level 29 Anion Gap 14 Blood Urea Nitrogen 19 Creatinine 0.67 Glucose Level 201 # Hemoglobin A1c 6.1 H Calcium Level 9.4 Total Bilirubin 0.3 Direct Bilirubin 0.00 Indirect Bilirubin 0.3 Aspartate Amino Transf (AST/SGOT) 23 Alanine Aminotransferase (ALT/SGPT) 33 Alkaline Phosphatase 75 Total Protein 7.3 Albumin 3.9 Globulin 3.40 H Albumin/Globulin Ratio 1.14 Thyroid Stimulating Hormone (TSH) 0.108 L Test 02/09/17 08:01 Bedside Glucose 169 Imaging Free Text/Dictation Resolving pneumonia. Medications Medications Current Medications Prednisone (Prednisone) 50 mg DAILY PO Last administered on 02/09/17 08:10; Admin Dose 50 MG; Start 02/08/17 at 14:30 Enoxaparin Sodium (Lovenox) 30 mg DAILY SC Last administered on 02/09/17 08: 12; Admin Dose 30 MG; Start 02/09/17 at 09:00 Azithromycin (Zithromax) 250 mg DAILY PO Last administered on 02/09/17 08:10 ; Admin Dose 250 MG; Start 02/09/17 at 09:00 Diagnostic Test (Pha) (Accu-Chek) 1 ea 02 XX Last administered on 02/09/17 02 :12; Admin Dose 1 EA; Start 02/09/17 at 02:00 Miscellaneous Information 1 ea NOTE XX ; Start 02/08/17 at 22:30 Glucose (Glutose) 15 gm Q15M PRN PO DECREASED GLUCOSE; Start 02/08/17 at 22:30 Glucose (Glutose) 22.5 gm Q15M PRN PO DECREASED GLUCOSE; Start 02/08/17 at 22: 30 Dextrose (D50w Syringe) 25 ml Q15M PRN IV DECREASED GLUCOSE; Start 02/08/17 at 22:30 Dextrose (D50w Syringe) 50 ml Q15M PRN IV DECREASED GLUCOSE; Start 02/08/17 at 22:30 Glucagon (Glucagen) 1 mg Q15M PRN IM DECREASED GLUCOSE; Start 02/08/17 at 22: 30 Glucose 15 gm 15 gm Q15M PRN BUCCAL DECREASED GLUCOSE; Start 02/08/17 at 22:30 Vancomycin HCl 1.25 gm/Sodium Chloride 250 ml @ 83.333 mls/ hr ONCE ONCE IVPB ; Start 02/09/17 at 14:00; Stop 02/09/17 at 16:59 Vancomycin HCl (Vancocin) 250 ml @ 125 mls/hr Q24H IVPB ; Start 02/10/17 at 14 :00 J[facility]ABILLON MD, [facility] Feb 09, 2017 12:52
[2017-02-09 13:22] VITALS: BP 124/77; RESP 19
[2017-02-09] MEDS ORDERED: VANCOMYCIN 1.25 GM in SOD CHLORIDE 0.9% 250 ML IVPB ONE (14:00)
--- NOTE | 2017-02-09 14:27 | PN ---
Date/Time of Note Date/Time of Note DATE: 02/09/17 TIME: 14:26 Assessment/Plan VTE Prophylaxis VTE Prophylaxis Intervention: LMWH Lines/Catheters IV [facility] Type [facility] Saline Lock Assessment/Plan Chief Complaint/Hosp Course 81 yo female with HLD, HTN, heavy lifetime smoke exposure from wood burning stove presenting with SOB. Found to have wheezing on exam, mild hypoxia and hypercapnea with CT showing emphysema Likely this patient has emphysema as a result of wood stove smoke exposure and this is an acute COPD exacerbation - Continue systemic steroids, bronchodilators, and azithromycin course - O2 to 88-92% by NC. Respiratory status is very stable at this point - Will need outpatient PFTs, will consult pulmonary to coordinate outpatient care - Start symbicort with inhaler education and albuterol PRN HLD: - Continue statin and aspirin Hypertension: - Continue SARAH HSQ Problems: Subjective 24 Hr Interval Summary Free Text/Dictation Doing better today, symptoms and pulmonary exam much improved Remains hypoxic however, 02 89-90% on RA Exam/Review of Systems Vital Signs Vitals Vital Signs Date Time Temp Pulse Resp B/P Pulse Ox O2 Delivery O2 Flow Rate FiO2 02/09/17 13:22 98.1 61 19 124/77 100 02/09/17 12:15 Nasal Cannula 3.0 02/08/17 11:29 21 Intake and Output 02/08/17 02/08/17 02/09/17 15:00 23:00 07:00 Intake Total 300 ml Balance 300 ml Exam Lungs much more clear, more air entry b/l, no appreciable wheezing Constitutional: alert, oriented, well developed Psych: nl mood/affect, no complaints Head: atraumatic, normocephalic Eyes: EOMI, PERRL, nl conjunctiva, nl lids, nl sclera ENMT: nl external ears & nose, nl lips & teeth, nl nasal mucosa & septum Neck: non-tender, supple Respiratory: clear to auscultation, normal air movement Cardiovascular: nl pulses, regular rate and rhythm Gastrointestinal: nl liver, spleen, non-tender, soft Musculoskeletal: nl extremities to inspection, nl gait and stance Extremities: normal pulses Neurological: VEHICLE INSPECTOR II-XII intact, nl mental status, nl speech, nl strength Skin: nl turgor, No rash or lesions Lymph: nl lymph nodes Results Result Diagram: 02/09/17 0448 02/09/17 0448 Results 24 hrs Laboratory Tests Test 02/08/17 21:23 02/08/17 22:28 02/09/17 02:03 02/09/17 04:48 Bedside Glucose 206 267 H 214 White Blood Count 8.3 Red Blood Count 4.25 Hemoglobin 12.9 Hematocrit 39.6 Mean Corpuscular Volume 93.2 Mean Corpuscular Hemoglobin 30.4 Mean Corpuscular Hemoglobin Concent 32.6 Red Cell Distribution Width 15.0 H Platelet Count 292 Mean Platelet Volume 10.2 Neutrophils % 85.9 H Lymphocytes % 11.1 L Monocytes % 2.3 Eosinophils % 0.0 Basophils % 0.1 Nucleated Red Blood Cells % 0.0 Neutrophils # 7.1 Lymphocytes # 0.9 Monocytes # 0.2 L Eosinophils # 0.0 Basophils # 0.0 Nucleated Red Blood Cells # 0.0 Sodium Level 144 Potassium Level 3.7 Chloride Level 105 Carbon Dioxide Level 29 Anion Gap 14 Blood Urea Nitrogen 19 Creatinine 0.67 Glucose Level 201 # Hemoglobin A1c 6.1 H Calcium Level 9.4 Total Bilirubin 0.3 Direct Bilirubin 0.00 Indirect Bilirubin 0.3 Aspartate Amino Transf (AST/SGOT) 23 Alanine Aminotransferase (ALT/SGPT) 33 Alkaline Phosphatase 75 Total Protein 7.3 Albumin 3.9 Globulin 3.40 H Albumin/Globulin Ratio 1.14 Thyroid Stimulating Hormone (TSH) 0.108 L Test 02/09/17 08:01 02/09/17 13:00 Bedside Glucose 169 143 Medications Medications Current Medications Prednisone (Prednisone) 50 mg DAILY PO Last administered on 02/09/17 08:10; Admin Dose 50 MG; Start 02/08/17 at 14:30 Enoxaparin Sodium (Lovenox) 30 mg DAILY SC Last administered on 02/09/17 08: 12; Admin Dose 30 MG; Start 02/09/17 at 09:00 Azithromycin (Zithromax) 250 mg DAILY PO Last administered on 02/09/17 08:10 ; Admin Dose 250 MG; Start 02/09/17 at 09:00 Diagnostic Test (Pha) (Accu-Chek) 1 ea 02 XX Last administered on 02/09/17 02 :12; Admin Dose 1 EA; Start 02/09/17 at 02:00 Miscellaneous Information 1 ea NOTE XX ; Start 10/18/17 at 22:30 Glucose (Glutose) 15 gm Q15M PRN PO DECREASED GLUCOSE; Start 02/08/17 at 22:30 Glucose (Glutose) 22.5 gm Q15M PRN PO DECREASED GLUCOSE; Start 02/08/17 at 22: 30 Dextrose (D50w Syringe) 25 ml Q15M PRN IV DECREASED GLUCOSE; Start 02/08/17 at 22:30 Dextrose (D50w Syringe) 50 ml Q15M PRN IV DECREASED GLUCOSE; Start 02/08/17 at 22:30 Glucagon (Glucagen) 1 mg Q15M PRN IM DECREASED GLUCOSE; Start 02/08/17 at 22: 30 Glucose 15 gm 15 gm Q15M PRN BUCCAL DECREASED GLUCOSE; Start 02/08/17 at 22:30 Vancomycin HCl 1.25 gm/Sodium Chloride 250 ml @ 83.333 mls/ hr ONCE ONCE IVPB Last administered on 02/09/17t 13:51; Admin Dose 83.333 MLS/HR; Start at 14:00; Stop 02/09/17 at 16:59 Vancomycin HCl (Vancocin) 250 ml @ 125 mls/hr Q24H IVPB ; Start 02/10/17 at 14 :00 TAWANA DUDLEY MD Feb 09, 2017 14:27
[2017-02-09] MEDS ORDERED: ALBUTEROL 18 GM INHALER INH ONE (15:30)
[2017-02-09] MEDS: SALMETEROL/FLUTICASONE 250/50 INHA INH SCH ×2 (16:13→23:56)
[2017-02-09 19:50] VITALS: BP 141/63; RESP 22
[2017-02-09] MEDS ORDERED: AL HYDROX/MG HYDROX/SIMETH 30 ML CUP PO PRN (20:00)
[2017-02-10] MEDS: ALBUTEROL/IPRATROPIUM (NEB) 3 ML AMP HHN SCH ×6 (00:38→20:50)
[2017-02-10] MEDS: ACCU-CHEK XX SCH (02:00)
[2017-02-10] MEDS: INSULIN ASPART [NOVOLOG] 3 ML PEN SC SCH ×4 (07:50→21:00)
[2017-02-10 08:09] VITALS: BP 138/64; RESP 19
[2017-02-10] MEDS: predniSONE 50 MG TAB PO SCH (08:45)
[2017-02-10] MEDS: SALMETEROL/FLUTICASONE 250/50 INHA INH SCH ×2 (08:45→22:00)
[2017-02-10] MEDS: AZITHROMYCIN 250 MG TAB PO SCH (08:45)
[2017-02-10] MEDS: ENOXAPARIN 30 MG/0.3 ML SYG SC SCH (08:51)
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
[2017-02-10] MEDS: VANCOMYCIN 1 GM in NS 250 ML IVPB SCH (14:51)
[2017-02-10 15:11] VITALS: BP 145/63; PULSE 86; RESP 16
[2017-02-10 20:12] VITALS: BP 141/64; RESP 20
[2017-02-11] MEDS: ACCU-CHEK XX SCH (02:00)
[2017-02-11] MEDS: ALBUTEROL/IPRATROPIUM (NEB) 3 ML AMP HHN SCH ×5 (02:45→18:11)
[2017-02-11 02:59] VITALS: BP 138/63; RESP 20
[2017-02-11] MEDS: INSULIN ASPART [NOVOLOG] 3 ML PEN SC SCH ×3 (07:50→17:47)
[2017-02-11 07:55] VITALS: BP 147/65; RESP 16
[2017-02-11] MEDS: predniSONE 50 MG TAB PO SCH (08:42)
[2017-02-11] MEDS: AZITHROMYCIN 250 MG TAB PO SCH (08:42)
[2017-02-11] MEDS: SALMETEROL/FLUTICASONE 250/50 INHA INH SCH (08:42)
[2017-02-11] MEDS: ENOXAPARIN 30 MG/0.3 ML SYG SC SCH (08:52)
[2017-02-11 13:46] VITALS: BP 146/64; RESP 17
[2017-02-11 14:27] LABS: AADO2 Arterial 48.2 mmHg (7.0-24.0); Allen Test ACCEPTAB; Arterial Base Excess 4.9 mmol/L (-3.0-3); Arterial COHb 0.1 % (0.0-3.0); Arterial HCO3 30.1 mmol/L (22.0-26.0); Arterial MetHb 0.2 % (0.0-1.5); Arterial Total Hemglobin 14.3 g/dl (12.0-18.0); MODE ROOM AIR
[2017-02-11] MEDS: VANCOMYCIN 1 GM in NS 250 ML IVPB SCH (15:00)
[2017-02-11] MEDS ORDERED: ALBU8.5H3 INH (15:32)
[2017-02-11] MEDS ORDERED: ADV25050 INHALATION (15:32)
--- NOTE | 2017-02-11 15:39 | PDOCDIS ---
Discharge Instructions DIAGNOSIS Discharge Diagnosis COPD acute exacerbation CONDITION Patient Condition: Fair FOLLOW UP/APPOINTMENTS Follow-up Plan Muy important que usa inhalador cada karen Albuterol usted puede usar solo cuando usted siente falta de aire Use oxigeno siempre Muy importante que oumou eligio rusty con el pulmonologo Regresa al hospital si tiene algun sintoma TAWANA DUDLEY MD Feb 11, 2017 15:39
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
--- NOTE | 2017-02-11 18:22 | CONS ---
Date/Time of Note Date/Time of Note DATE: 02/11/17 TIME: 18: Consult Date/Type/Reason Admit Date/Time Feb 08, 2017 at 14:06 Initial Consult Date 02/09/17 Type of Consultation: Pulmonary Subjective No events. Better. Objective Vital Signs Date Time Temp Pulse Resp B/P Pulse Ox O2 Delivery O2 Flow Rate FiO2 02/11/17 18:11 79 20 93 Nasal Cannula 3.0 02/11/17 14:07 21 02/11/17 13:46 98.5 146/64 Intake and Output 02/10/17 02/10/17 02/11/17 15:00 23:00 07:00 Intake Total 870 ml 240 ml Output Total 460 ml Balance 410 ml 240 ml Exam HEENT: Neck supple; no JVD; no LAD CVS: RRR, S1 and S2 CHEST: Clear ABD: Soft, NT, + BS EXT: No c/c/e Results/Medications Result Diagram: 02/09/17 0448 02/09/17 0448 Results 24 hrs Laboratory Tests Test 02/10/17 20:48 02/11/17 08:41 02/11/17 12:47 02/11/17 13:01 Bedside Glucose 114 93 145 Blood Gas Specimen Source Blood arterial Arterial Blood Date Drawn 02/11/2017 2:15:15 PM Arterial Blood pH (Temp corrected) 7.433 Arterial Blood pCO2 (Temp correct) 46.0 H Arterial Blood pO2 (Temp corrected) 46.4 *L Arterial Blood HCO3 30.1 H Arterial Blood Base Excess 4.9 H Arterial Blood Oxygen Saturation 83.2 L Tarik Test ACCEPTAB Arterial Blood Gas Puncture Site Right Radial Arterial Blood Carboxyhemoglobin 0.1 Arterial Blood Methemoglobin 0.2 Blood Gas A-a O2 Differential 48.2 H Oxyhemoglobin Percent 83.0 L Total Hemoglobin 14.3 Blood Gas Temperature 37.0 Blood Gas Modality ROOM AIR FiO2 21.0 Blood Gas Critical Value Read Back Baldomero DE RN Blood Gas Notified Whom TM Blood Gas Notified Time 02/11/2017 2:26:45 PM Test 02/11/17 17:42 Bedside Glucose 164 Medications Current Medications Prednisone (Prednisone) 50 mg DAILY PO Last administered on 02/11/17t 08:42; Admin Dose 50 MG; Start 02/08/17 at 14:30 Enoxaparin Sodium (Lovenox) 30 mg DAILY SC Last administered on 02/11/17 08: 52; Admin Dose 30 MG; Start 02/09/17 at 09:00 Azithromycin (Zithromax) 250 mg DAILY PO Last administered on 02/11/17 08:42 ; Admin Dose 250 MG; Start 02/09/17 at 09:00 Diagnostic Test (Pha) (Accu-Chek) 1 ea 02 XX Last administered on 02/09/17 02 :12; Admin Dose 1 EA; Start 02/09/17 at 02:00 Miscellaneous Information 1 ea NOTE XX ; Start 02/08/17 at 22:30 Glucose (Glutose) 15 gm Q15M PRN PO DECREASED GLUCOSE; Start 02/08/17 at 22:30 Glucose (Glutose) 22.5 gm Q15M PRN PO DECREASED GLUCOSE; Start 02/08/17 at 22: 30 Dextrose (D50w Syringe) 25 ml Q15M PRN IV DECREASED GLUCOSE; Start 02/08/17 at 22:30 Dextrose (D50w Syringe) 50 ml Q15M PRN IV DECREASED GLUCOSE; Start 02/08/17 at 22:30 Glucagon (Glucagen) 1 mg Q15M PRN IM DECREASED GLUCOSE; Start 02/08/17 at 22: 30 Glucose 15 gm 15 gm Q15M PRN BUCCAL DECREASED GLUCOSE; Start 02/08/17 at 22:30 Vancomycin HCl (Vancocin) 250 ml @ 125 mls/hr Q24H IVPB Last administered on 02/11/17 15:00; Admin Dose 125 MLS/HR; Start 02/10/17 at 14:00 Salmeterol Xinafoate/ Fluticasone (Advair 250/50 Diskus) 1 inh BID INH Last administered on 02/11/17 08:42; Admin Dose 1 INH; Start 02/09/17 at 15:30 Al Hydrox/Mg Hydrox/Simethicone (Mag-Al Plus) 30 ml Q6H PRN PO GASTROINTESTINAL UPSET Last administered on 02/09/17 20:30; Admin Dose 30 ML; Start 02/09/17 at 20:00 Miscellaneous Information (*Rx Drug Level Order Reminder*) VANCO TROUGH @ 1, 300 ON ... ONCE ONCE XX ; Start 02/12/17 at 13:00; Stop 10/22/17 at 13:01 Assessment/Plan Additional Assessment/Plan IMP: 1. COPD due to [place] Lung RECS: 1. BD's/CS/outpatient pulm f/u and PFTs ALE DOW MD Feb 11, 2017 18:22
[2017-02-11 19:20] VITALS: BP 156/72; RESP 18
== END 2017-02-11 20:30 | disposition home or self-care (01) | DRG 190 ==
LOC: E/R 10:19 → MS1 14:06
PROVIDERS: ADMIT Internal Medicine; ATTEND Internal Medicine
DX: J44.1 Chronic obstructive pulmonary disease with (acute) exacerbation (principal); J18.9 Pneumonia, unspecified organism; R06.89 Other abnormalities of breathing; T59.811A Toxic effect of smoke, accidental (unintentional), initial encounter; I10 Essential (primary) hypertension; E78.5 Hyperlipidemia, unspecified; J68.4 Chronic respiratory conditions due to chemicals, gases, fumes and vapors; R09.02 Hypoxemia; Z77.22 Contact with and (suspected) exposure to environmental tobacco smoke (acute) (chronic); J43.9 Emphysema, unspecified
CPT/HCPCS: 36415; 36600; 71010; 71275; 80048; 80053; 82803; 82962; 83036; 83605; 83880; 84443; 85025; 87040; 90686; 93005; 94640; 94664; 96374; 96375; J0456; J1650; J1815; J2930; J3370; J7040; J7050; J7512; Q9967